=== PATIENT | female | born 1990 | race Caucasian/White ===

== ENCOUNTER 2016-12-22 14:37 | Emergency (ER) | payer SELFPAY ==
[~2016-12-22] VITALS: Ht 165.1 cm; Wt 49.9 kg
[~2016-12-22 14:37] MED LIST: ALBU1AER9 INH; FLUT44AE INH; ONDA4TAB46 PO; OXYC1TAB3 PO
[2016-12-22 14:50] VITALS: TEMP 36.8; Ht 165.1 cm; Wt 49.9 kg
[2016-12-22] MEDS ORDERED: OXYC1TAB3 PO (17:15)
[2016-12-22] MEDS ORDERED: PRED50TA PO (17:15)
--- NOTE | 2016-12-22 17:15 | EMERGENCY ROOM VISIT NOTE ---
History First contact with patient: 16:28 Chief Complaint: ILLNESS Stated Complaint: RAYNAUDS History of Present Illness The patient is a 26 year old female who presents to the Emergency Room with complaints of bilateral foot pain. The patient reports that she has a history of Raynaud's disease for the past 8 years. The patient reports that she sees a restaurant host/hostess locally and a vascular surgeon in [place] for her symptoms. She reports that she previously saw pain management, but is no longer able to see them due to insurance issues. She currently takes a calcium channel merna and naproxen for her symptoms. She states that over the past few weeks , she has had increasing episodes of pain in the feet. She states that she has become nauseous at times due to the pain. She reports she becomes symptomatic with any temperature changes. She rates the pain an 8/10 at its worst. She did soak her feet in Epsom salts today with some relief. She reports that she called her restaurant host/hostess and was able to make an appointment next week. She also call her primary care provider, but they're unable to see her for several weeks. She denies any new symptoms. She denies any numbness or weakness. She denies any fevers/chills. Review of Systems A complete 10-point Review of Systems was discussed with the patient, with pertinent positives and negatives listed in the History of Present Illness. All remaining Review of Systems questions can be considered negative unless otherwise specified. Past Medical/Surgical History Medical Problems: (1) Abrasion of hand (2) Abrasion of hand (3) Anxiety (4) Asthma, Unspecified (5) Depression (6) Esophageal Reflux (7) Pain in finger of left hand (8) Pain, dental (9) Pilonidal Cyst W Abscess (10) Pre-syncope (11) Raynauds disease (12) Sprain of left shoulder Family History No significant family history Social History Smoking Status: Never Smoker Alcohol Use: none Drug Use: none Marital Status: single Housing Status: lives with family Occupation Status: employed Current/Historical Medications Scheduled Ibuprofen (Advil), 200-600 MG PO Q4H Levonorgestrel & Eth Estradiol (Orsythia), PO DAILY Multiple Vitamin (Multivitamin), 1 TAB PO DAILY Nifedipine (Procardia), 30 MG PO BID Paroxetine (Paxil), 40 MG PO HS Prednisone (Prednisone), 50 MG PO DAILY Scheduled PRN Albuterol Sulf (Proventil 0.083% 2.5MG/3ML), 2.5 MG INH Q4H PRN for Wheezing Albuterol Sulfate (Proair Hfa), 2 PUFFS INH QID PRN for Asthma Symptoms Fluticasone Propionate Hfa (Flovent Hfa 44MCG Inhaler), 2 PUFFS INH BID PRN for Asthma Symptoms Naproxen (Naprosyn), 500 MG PO BID PRN for PRN Omeprazole (Omeprazole), 20 MG PO DAILY PRN for Acid Reflux Oxycodone Ir (Roxicodone Ir), 1-2 TAB PO Q4H PRN for Pain Ranitidine Hcl (Zantac), 300 MG PO HS PRN for Indigestion Valacyclovir Hcl (Valtrex), 2,000 MG PO Q12 PRN for Cold Sore(s) Allergies Coded Allergies: Hydrocodone (Unverified Allergy, Mild, HIVES, 12/22/16) Codeine (Verified Allergy, Unknown, rash, 12/22/16) Molds and Smuts (Verified Allergy, Unknown, 12/22/16) Penicillins (Verified Allergy, Unknown, 12/22/16) Tramadol (Verified Allergy, Unknown, RASH, 12/22/16) Physical Exam Vital Signs Date Time Temp Pulse Resp B/P Pulse Ox O2 Delivery O2 Flow Rate FiO2 12/22/16 17:32 95 18 125/77 98 12/22/16 14:50 36.8 91 18 113/77 93 Room Air Physical Exam VITALS: Vitals are noted on the nurse's note and reviewed by myself. Vital signs stable. GENERAL: This is a 25-year-old female, in no acute distress, nondiaphoretic, well-developed well-nourished. SKIN: Capillary reflex less than 2 seconds. HEART: Regular rate and rhythm without murmurs gallops or rubs. LUNGS: Clear to auscultation bilaterally without wheezes, rales or rhonchi. No retractions or accessory muscle use. EXTREMITIES: Mild pallor to the left first second and third toes. No erythema or cyanosis. Capillary refill within 2 seconds. No tenderness to palpation. Distal sensation intact. MUSCULOSKELETAL: Full range of motion and strength 5/5 in bilateral lower extremities. NEURO: Patient was alert and oriented to person place and time. Normal sensation to light and sharp touch. Medical Decision & Procedures Medical Decision Differential diagnosis includes Raynaud disease, DVT, gangrene, infection, among others. The patient was evaluated as above. Her physical exam is remarkable at this time, but the patient states she has had intermittent worsening symptoms over the past few weeks. I did attempt to contact the patient's restaurant host/hostess, but was not able to get through to anyone. I did agree to give the patient a short course of pain medication as well as a course of prednisone. She will follow- up closely with her restaurant host/hostess and she does state that she has appointment next week with them. She understands to return for any worsening symptoms. She verbalized understanding and was discharged home in good condition. [place] Drug Monitoring Program Search Results: patient reviewed within database, no issues identified Impression Primary Impression: Raynaud disease Departure Information Dispostion Home / Self-Care Condition GOOD Prescriptions Prednisone (Prednisone) 50 Mg Tab 50 MG PO DAILY for 5 Days, #5 TAB Prov: Brooklynn Reyes PA-C 12/22/16 Oxycodone Ir (Roxicodone Ir) 5 Mg Tab 1-2 TAB PO Q4H Y for Pain, #15 TAB For Initial Treatment Prov: Brooklynn Reyes PA-C 12/22/16 Referrals Shanel Turner (PCP) Patient Instructions My [facility] Additional Instructions For pain control, you can use the following [id number] medicines (if >12 yo): - Regular strength (325mg/tab) Tylenol (acetaminophen) 2 tabs every 4-6 hours as needed. Do not exceed 12 tablets in a 24 hour period. Avoid taking more than 4 grams (4000 mg) of Tylenol per day. This includes any other sources of acetaminophen you may take on a regular basis. - Regular strength (200 mg/tab) Advil (ibuprofen) 1-2 tabs every 4-6 hours as needed. Do not exceed a dose of 3200 mg per day. You have been prescribed Prednisone. This is a steroid which will help decrease your inflammation and pain. Take this medicine as prescribed. Take the ENTIRE course. It is best to take steroids early in the morning as PM dosing can affect your sleeping patterns. You have been prescribed Oxy IR to be used for pain control. Take 1-2 tablets every 4-6 hours as needed for pain. This is a narcotic medication. You cannot drive or consume alcohol while on this medicine. This medicine should only be used for pain that cannot be controlled with [id number] pain medicines. Follow-up with your restaurant host/hostess and primary care provider as scheduled. Problem Qualifiers Primary Impression: Raynaud disease Raynaud?s-associated gangrene presence: without gangrene Qualified Codes: I73.00 - Raynaud's syndrome without gangrene
[2016-12-22 17:32] VITALS: BP 125/77; PULSE 95; O2SAT 98
[2017-06-15] MEDS ORDERED: VALA1TAB2 PO (10:28)
[2017-06-15] MEDS ORDERED: ALBINS/ NEB (10:28)
[2017-06-15] MEDS ORDERED: LEVO1TAB19 PO (10:32)
[2017-06-15] MEDS ORDERED: MULTTAB58 PO (13:23)
[2017-06-15] MEDS ORDERED: OMEP20TA PO (13:50)
[2017-06-15] MEDS ORDERED: RANI300T PO (13:50)
== END 2016-12-22 17:25 | disposition home or self-care (01) ==
LOC: C.EDB 14:39
DX: I73.00 Raynaud's syndrome without gangrene (principal); M79.671 Pain in right foot; M79.672 Pain in left foot; R11.0 Nausea; F41.9 Anxiety disorder, unspecified; F32.9 Major depressive disorder, single episode, unspecified; K21.9 Gastro-esophageal reflux disease without esophagitis; J45.909 Unspecified asthma, uncomplicated; Z79.3 Long term (current) use of hormonal contraceptives; Z79.899 Other long term (current) drug therapy; Z88.0 Allergy status to penicillin; Z88.5 Allergy status to narcotic agent; Z88.6 Allergy status to analgesic agent

== ENCOUNTER 2017-06-15 15:18 | Emergency (ER) | payer SELFPAY ==
[~2017-06-15] VITALS: Ht 165.1 cm; Wt 46.4 kg
[~2017-06-15 15:18] MED LIST changes: +ALBINS/ NEB; +LEVO1TAB19 PO; +MULTTAB58 PO; +OMEP20TA PO; -ONDA4TAB46 PO; +RANI300T PO; +VALA1TAB2 PO
[2017-06-15 15:23] VITALS: TEMP 36.6; Ht 165.1 cm; Wt 46.4 kg
[2017-06-15] MEDS ORDERED: SODIUM CHLORIDE 0.9% 1000ML 1,000 ML IV STA (16:02)
[2017-06-15] MEDS ORDERED: HYDROmorphone INJ 1 MG/ML SYR IV STA (16:02)
[2017-06-15] MEDS ORDERED: ALBU18002 INH (17:05)
[2017-06-15] MEDS ORDERED: FLVHFA44 INH (17:05)
[2017-06-15] MEDS ORDERED: PRED50TA PO (17:11)
[2017-06-15] MEDS ORDERED: OXYC1TAB3 PO (17:11)
[2017-06-15] MEDS ORDERED: IBUP-1277 PO (17:12)
--- NOTE | 2017-06-15 17:12 | EMERGENCY ROOM VISIT NOTE ---
History Report prepared by Jon: Damien Cho Under the Supervision of: Dr. Jacques Ellsworth M.D. First contact with patient: 15:56 Chief Complaint: FOOT PAIN Stated Complaint: ELZA. FOOT PAIN/RAYNARDS DISEASE History of Present Illness The patient is a 27 year old female who presents to the Emergency Room with complaints of persistent bilateral foot pain beginning a few days ago. She states that her right foot is worse than her left. She has a history of Raynaud' s disease. The patient states that her feet are turning bluish as well. She denies any urinary symptoms, fevers, SOB, chills, or vomiting. She states that she has felt stressed lately, but has been eating normally. She denies swimming in any cold bodies of water recently. Source of History: patient Onset: A few days ago Position: foot (bilateral) Timing: other (persistent) Associated Symptoms: No fevers, No chills, No SOB, No vomiting, No urinary symptoms Note: The patient also complains of bluish coloration to the feet. Review of Systems See HPI for pertinent positives & negatives. A total of 10 systems reviewed and were otherwise negative. Past Medical & Surgical Medical Problems: (1) Abrasion of hand (2) Abrasion of hand (3) Anxiety (4) Asthma, Unspecified (5) Depression (6) Esophageal Reflux (7) Pain in finger of left hand (8) Pain, dental (9) Pilonidal Cyst W Abscess (10) Pre-syncope (11) Raynauds disease (12) Sprain of left shoulder Family History No significant family history Social History Smoking Status: Never Smoker Alcohol Use: none Drug Use: none Marital Status: single Housing Status: lives with family Occupation Status: employed Current/Historical Medications Scheduled Levonorgestrel & Eth Estradiol (Orsythia), 1 TAB PO DAILY Multiple Vitamin (Multivitamin), 1 TAB PO DAILY Nifedipine (Procardia), 30 MG PO UD Paroxetine (Paxil), 40 MG PO HS Prednisone (Prednisone), 50 MG PO DAILY Scheduled PRN Albuterol Sulf (Proventil 0.083% 2.5MG/3ML), 2.5 MG NEB Q4H PRN for Wheezing Albuterol Sulfate (Proair Respiclick), 2 PUFFS INH QID PRN for Asthma Symptoms Fluticasone Propionate (Flovent Hfa), 2 PUFFS INH BID PRN for Asthma Symptoms Ibuprofen (Advil), 200-600 MG PO Q4H PRN for Pain Naproxen (Naprosyn), 500 MG PO BID PRN for Pain Omeprazole (Omeprazole), 20 MG PO DAILY PRN for Acid Reflux Oxycodone Immediate Rel Tab (Roxicodone Ir), 1-2 TAB PO Q4H PRN for Severe Pain Ranitidine Hcl (Zantac), 300 MG PO HS PRN for Indigestion Valacyclovir Hcl (Valtrex), 2,000 MG PO Q12 PRN for Cold Sore(s) Allergies Coded Allergies: Hydrocodone (Unverified Allergy, Mild, HIVES, 12/22/16) Codeine (Verified Allergy, Unknown, rash, 12/22/16) Molds and Smuts (Verified Allergy, Unknown, 12/22/16) Penicillins (Verified Allergy, Unknown, 12/22/16) Tramadol (Verified Allergy, Unknown, RASH, 12/22/16) Physical Exam Vital Signs Date Time Temp Pulse Resp B/P (MAP) Pulse Ox O2 Delivery O2 Flow Rate FiO2 06/15/17 17:35 71 16 117/63 100 06/15/17 15:23 36.6 104 17 115/72 94 Room Air Physical Exam GENERAL: Patient is in moderate distress, uncomfortable appearing. HEENT: No acute trauma, normocephalic atraumatic, mucous membranes moist, no nasal congestion, no scleral icterus. NECK: No stridor, no adenopathy, no meningismus, trachea is midline. LUNGS: No dyspnea. Clear to auscultation and equal bilaterally. No wheeze, no rhonchi. HEART: Mildly tachycardic rate with a normal rhythm. No murmurs, rubs, gallops appreciated. ABDOMEN: Soft, nontender, bowel sounds positive, no masses appreciated, no peritonitis. BACK: No midline tenderness, no CVA tenderness EXTREMITIES: Normal motion all extremities, no edema. Slight bluish discoloration of the right fourth and fifth toes. NEUROLOGIC: Alert and oriented, no acute motor or sensory deficits, no focal weakness, cranial nerves grossly intact. SKIN: No rash, no jaundice, no diaphoresis. Medical Decision & Procedures Medications Administered Medications (Trade) Dose Ordered Sig/Ra Route Start Time Stop Time Status Last Admin Dose Admin Sodium Chloride 1,000 ml @ 999 mls/hr Q1H1M STAT IV 06/15/17 16:02 06/15/17 17:02 DC 06/15/17 16:15 999 MLS/HR Hydromorphone HCl (Dilaudid Inj) 1 mg NOW STAT IV 06/15/17 16:02 06/15/17 16:03 DC 06/15/17 16:16 1 MG Oxycodone HCl (Roxicodone Immediate Rel 5MG Home Pack) 1 homepack UD ONCE PO 06/15/17 17:15 06/15/17 17:16 DC 06/15/17 17:33 1 HOMEPACK Dexamethasone Sodium Phosphate (Decadron Inj) 10 mg NOW ONCE IV 06/15/17 17:15 06/15/17 17:16 DC 06/15/17 17:25 10 MG ED Course 1558: The patient was evaluated in room A2. A complete history and physical exam was performed. 1602: Ordered Dilaudid Inj 1 mg IV, Sodium Chloride 1000 ml @ 999 mls/hr. 1626: I reassessed the patient. She is feeling better, receiving warm IV fluids. 1705: Reevaluated the patient. She feels much better, and her toes appear warm and pink. Discussed results and discharge instructions: she verbalized understanding and agreement. The patient is ready for discharge. 1715: Ordered Decadron Inj 10 mg IV, Roxicodone Immediate Rel 5 mg Home Pack PO. Medical Decision Differential: Raynaud's, arterial occlusion, gangrene, infection, as well as other etiologies were considered. Pleasant 27 yr old female with flare of raynaud resulting in blue and pain in toes/feet. No ulcers and color improving already. Warmth to feet, warm fluids and pain meds. Feeling much better. Toes warm, pink with good sensation. No other symptoms. Consistent with flare, unclear why in middle of summer though maybe with AC cause. She will follow up with PCP. Continue nifedipine. Follow up with PCP. Previously notes that steroids make symptoms much better thus will do these. [place] Drug Monitoring Program Search Results: patient reviewed within database, see additional documentation Drug Monitoring Findings: Single narcotic prescription in the last six months. Impression Primary Impression: Raynaud disease Scribe Attestation The scribe's documentation has been prepared under my direction and personally reviewed by me in its entirety. I confirm that the note above accurately reflects all work, treatment, procedures, and medical decision making performed by me. Departure Information Dispostion Home / Self-Care Prescriptions Prednisone (PREDNISONE) 50 Mg Tab 50 MG PO DAILY for 5 Days, #5 TAB Prov: Jacques Ellsworth M.D. 06/15/17 Oxycodone Immediate Rel Tab (ROXICODONE IR) 5 Mg Tab 1-2 TAB PO Q4H Y for Severe Pain, #20 TAB Prov: Jacques Ellsworth M.D. 06/15/17 Referrals Sheng Tang M.D. Patient Instructions My [facility], Raynaud Disease Additional Instructions You have received a narcotic pain medication prescription. These medications may cause drowsiness and should not be used with other sedative medications. Do not drive, drink alcohol, perform dangerous activities, nor make important decisions after taking these medications. correction use or inappropriate use may lead to addiction.
[2017-06-15] MEDS ORDERED: NAPR-1169 PO (17:13)
[2017-06-15] MEDS ORDERED: OXYCODONE IR HOME PACK PO ONE (17:15)
[2017-06-15] MEDS ORDERED: DEXAMETHASONE SOD INJ 10 MG/ML VIAL IV ONE (17:15)
[2017-06-15 17:35] VITALS: BP 117/63; PULSE 71; O2SAT 100
[2017-06-15] MEDS ORDERED: NIFE10CA20 PO (21:56)
[2017-06-15] MEDS ORDERED: PARO1TAB29 PO (22:34)
== END 2017-06-15 17:37 | disposition home or self-care (01) ==
LOC: C.EDB 15:22 → C.EDA 17:37
DX: I73.00 Raynaud's syndrome without gangrene (principal); F41.9 Anxiety disorder, unspecified; J45.909 Unspecified asthma, uncomplicated; F32.9 Major depressive disorder, single episode, unspecified; K21.9 Gastro-esophageal reflux disease without esophagitis

== ENCOUNTER 2021-12-23 17:37 | Inpatient (IN) ==
[2021-12-23] MEDS ORDERED: SODIUM CHLORIDE 0.9% 1000ML 1,000 ML IV SCH (18:15)
[2021-12-23] MEDS ORDERED: ONDANSETRON INJ 2 MG/ML 2 ML VIAL IV STA (18:24)
[2021-12-23] MEDS ORDERED: SODIUM CHLORIDE 0.9% 1000ML 1,000 ML IV ONE (18:24)
[2021-12-23 18:33] LABS: Hematocrit (blood only) 38.7 % (37-47); Hemoglobin 12.7 g/dL (12.0-16.0); Mean Corpuscular Hemoglobin 29.2 pg (25-34); Mean Corpuscular Hgb Conc 32.8 g/dL (32-36); Mean Platelet Volume 10.4 fL (7.4-10.4); Platelet Count 292 K/uL (130-400); RDW Coefficient of Variation 12.7 % (11.5-14.5); RDW Standard Deviation 40.8 fL (36.4-46.3); Red Blood Count 4.35 M/uL (4.2-5.4); White Blood Count 24.04 K/uL (4.8-10.8)
--- NOTE | 2021-12-23 18:40 | Emergency Department Note ---
Impression & Plan Hypotension, UTI (urinary tract infection), Kidney stone, Tachycardia, Leukocytosis, Pyelonephritis ED Provider Note NAME: KASSANDRA MIGUEL AGE: 31 SEX: F : 1990 ARRIVES VIA: Walk-In INFORMANT: [Patient] ED PROVIDER(S): [Nehemiah Coombs MD] CHIEF COMPLAINT: Syncope HISTORY OF PRESENT ILLNESS: The patient is a 31-year-old female who states that for 2-3 days, she has had flulike symptoms. She has felt chills, sweats, nausea. She has been fatigued. The patient has had no appetite and feels dehydrated. No diarrhea. No real cough. Maybe some mild shortness of breath. Patient was on her way to get a Covid test today when she felt quite faint. She apparently passed out at least 2 times, every time she tried to stand, she would pass out. The patient thinks that she is dehydrated from not eating or drinking. The patient is not vaccinated for COVID-19 or influenza. REVIEW OF SYSTEMS: See HPI for pertinent positives and negatives. A total of ten systems were reviewed and were otherwise negative. PMHx/PSHx: See Below SOCIAL HISTORY: See Below. PHYSICAL EXAM: GENERAL: Patient is in no acute distress. HEENT: No acute trauma, normocephalic atraumatic, mucous membranes moist, no nasal congestion, no scleral icterus. NECK: No stridor, no adenopathy, no meningismus, trachea is midline. LUNGS: Clear to auscultation bilaterally, no wheeze, no rhonchi, breath sounds equal. HEART: Mildly tachycardic, regular rhythm, no murmurs. ABDOMEN: Soft, nontender, bowel sounds positive, no hernias, no peritonitis. EXTREMITIES: No cyanosis or edema, full range of motion of all the joints without pain or difficulty, no signs for acute trauma. NEUROLOGIC: Oriented x 3, no acute motor or sensory deficits, no focal weakness. SKIN: No rash, no jaundice, no diaphoresis. DIFFERENTIAL DIAGNOSIS: Infection, dehydration, COVID-19, UTI, , dysrhythmia, SVT, a flutter, A. fib, metabolic abnormality, hypo/hyperglycemia, electrolyte disturbance, anemia, hypoxia, cardiac sources, intracerebral event, toxicologic issues, stroke, TIA, as well as other pathologies. EMERGENCY DEPARTMENT COURSE/PROCEDURES: ECG: Indication was syncope. The ECG shows a normal sinus rhythm with a rate of 96. There is an incomplete right bundle branch block. There is no ST elevation, no dysrhythmia, no PVCs. The QTc is 464. Continuous Cardiac Monitoring: An order was placed for continuous cardiac monitoring. The monitor shows a rate of 102 with sinus tachycardia. Critical Care Note: I have personally spent 53 minutes of critical care time in the direct management of this patient. This includes bedside care, interpretation of diagnostic studies, and testing, discussion with consultants, patient, and family members, and other required patient management activities. This 53 minutes is in excess of all separately billable procedures. MEDICAL DECISION MAKING: There is a significant leukocytosis at 24,000, this would be consistent with infection. Renal panel testing showed a slightly low potassium, no renal failure. Lactic acid level was elevated consistent with potential infection versus dehydration. Magnesium was low at 1.4. No concerning liver enzyme elevation. The patient appeared to be in a euthyroid state. testing returned negative. ECG showed a normal sinus rhythm, no obvious acute ischemia. Cardiac enzyme testing x1 was not consistent with acute cardiac injury. Urinalysis is consistent with infection. Covid and influenza testing returned negative. Chest film did not show pneumonia or CHF. Abdominal and pelvis CT showed potential pyelonephritis. Renal stones were seen. The patient received IV saline, 2 L. She was given a liter of lactated Ringer's. She received IV ceftriaxone as antibiotic coverage. She received IV potassium, IV Zofran, IV magnesium. The patient's heart rate has improved, her blood pressure has improved. I discussed her case with urology. Urology did see the patient here in the ED. I spoke to the patient about her findings. Hospitalization is warranted. She may have early sepsis as the cause for her presentation. I spoke to case management, the on-call hospitalist was consulted. Past Med/Surg History Medical History (Updated 12/24/21 @ 16:39 by Nehemiah Coombs MD) Raynaud disease UTI (urinary tract infection) Surgical History No significant past surgical history Social History Smoking Status: Never smoker Hx Alcohol Use: No Hx Substance Use: Yes Last Used Substance: Days (ago) Preferred Language: Georgian Communication Ability: Effective [place] Required: No Beliefs That Will Affect Care: None marital status: Single Current Living Situation: Alone current occupational status: employed Feels Safe at Home: Yes Assistive Devices: None Allergies Allergies Allergy/AdvReac Type Severity Reaction Status Date / Time hydrocodone Allergy Intermediate HIVES Verified 12/23/21 19:17 codeine Allergy Mild rash Verified 12/23/21 19:17 tramadol Allergy Mild RASH Verified 12/23/21 19:17 mold Allergy Unknown Unknown Verified 12/23/21 19:17 Penicillins Allergy Unknown Unknown Verified 12/23/21 19:17 Home Meds Home Medications Medication Instructions Recorded Confirmed [id number] 200 mcg-vit K 100 1 cap PO DAILY 04/30/20 12/23/21 mcg-lycop 500 [id number] capsule (Daily Multivitamin) atfdmok-kpmhncaiqjcxx-czhsmyrc 250 2 tab PO BID PRN 12/23/21 12/23/21 mg-250 mg-65 mg tablet (Excedrin Migraine) ibuprofen 200 mg tablet (Advil) 400 mg PO Q12 PRN 12/23/21 12/23/21 Results & Data (ED) Vital Signs Vital Signs - 24 hr 12/23/21 17:46 12/23/21 18:02 12/23/21 18:03 Temperature 36.3 C L Temperature Source Temporal Artery Scan Pulse Rate 116 H Pulse Rate [Right Finger] 102 H Pulse Rate from SpO2 Sensor Respiratory Rate 20 16 Respiratory Effort / Characteristics Non-Labored Respiratory Depth Normal Blood Pressure 72/42 L Blood Pressure [Left Arm] 82/44 L Blood Pressure Mean 52 Blood Pressure Mean [Left Arm] 56 Blood Pressure Position [Left Arm] Lying Pulse Oximetry 100 97 100 Oxygen Delivery Method Room Air Room Air Room Air Sepsis Recent Fever Within 48 Hours No Sepsis New/Unexplained Change in Mental Status N/A Sepsis Action Taken by Nursing No Action Required 12/23/21 18:21 12/23/21 18:39 12/23/21 18:44 Temperature Temperature Source Pulse Rate 101 H 106 H Pulse Rate [Right Finger] Pulse Rate from SpO2 Sensor Respiratory Rate 20 16 Respiratory Effort / Characteristics Respiratory Depth Blood Pressure 92/57 L 88/49 L 96/58 L Blood Pressure [Left Arm] Blood Pressure Mean 68 62 70 Blood Pressure Mean [Left Arm] Blood Pressure Position [Left Arm] Pulse Oximetry 100 Oxygen Delivery Method Room Air Sepsis Recent Fever Within 48 Hours Sepsis New/Unexplained Change in Mental Status Sepsis Action Taken by Nursing 12/23/21 18:45 12/23/21 18:46 12/23/21 18:50 Temperature Temperature Source Pulse Rate 104 H 104 H Pulse Rate [Right Finger] Pulse Rate from SpO2 Sensor 109 H 105 H Respiratory Rate 19 17 Respiratory Effort / Characteristics Respiratory Depth Blood Pressure 92/52 L 93/60 L Blood Pressure [Left Arm] Blood Pressure Mean 65 71 Blood Pressure Mean [Left Arm] Blood Pressure Position [Left Arm] Pulse Oximetry 97 100 Oxygen Delivery Method Sepsis Recent Fever Within 48 Hours Sepsis New/Unexplained Change in Mental Status Sepsis Action Taken by Nursing 12/23/21 18:55 12/23/21 19:00 12/23/21 19:05 Temperature Temperature Source Pulse Rate 99 H 97 H Pulse Rate [Right Finger] Pulse Rate from SpO2 Sensor Respiratory Rate 16 15 Respiratory Effort / Characteristics Respiratory Depth Blood Pressure 100/61 98/60 L Blood Pressure [Left Arm] Blood Pressure Mean 74 72 Blood Pressure Mean [Left Arm] Blood Pressure Position [Left Arm] Pulse Oximetry 98 Oxygen Delivery Method Room Air Sepsis Recent Fever Within 48 Hours Sepsis New/Unexplained Change in Mental Status Sepsis Action Taken by Nursing 12/23/21 19:10 12/23/21 19:20 12/23/21 19:25 Temperature Temperature Source Pulse Rate Pulse Rate [Right Finger] Pulse Rate from SpO2 Sensor Respiratory Rate Respiratory Effort / Characteristics Respiratory Depth Blood Pressure 91/59 L 96/60 L 91/59 L Blood Pressure [Left Arm] Blood Pressure Mean 69 72 69 Blood Pressure Mean [Left Arm] Blood Pressure Position [Left Arm] Pulse Oximetry Oxygen Delivery Method Sepsis Recent Fever Within 48 Hours Sepsis New/Unexplained Change in Mental Status Sepsis Action Taken by Nursing 12/23/21 19:30 12/23/21 19:37 12/23/21 19:40 Temperature Temperature Source Pulse Rate Pulse Rate [Right Finger] Pulse Rate from SpO2 Sensor Respiratory Rate Respiratory Effort / Characteristics Respiratory Depth Blood Pressure 91/65 L 94/64 L 103/63 Blood Pressure [Left Arm] Blood Pressure Mean 73 74 76 Blood Pressure Mean [Left Arm] Blood Pressure Position [Left Arm] Pulse Oximetry Oxygen Delivery Method Sepsis Recent Fever Within 48 Hours Sepsis New/Unexplained Change in Mental Status Sepsis Action Taken by Nursing 12/23/21 19:55 12/23/21 20:00 12/23/21 20:15 Temperature Temperature Source Pulse Rate Pulse Rate [Right Finger] Pulse Rate from SpO2 Sensor Respiratory Rate Respiratory Effort / Characteristics Respiratory Depth Blood Pressure 97/62 L 94/65 L 106/70 Blood Pressure [Left Arm] Blood Pressure Mean 73 74 82 Blood Pressure Mean [Left Arm] Blood Pressure Position [Left Arm] Pulse Oximetry Oxygen Delivery Method Sepsis Recent Fever Within 48 Hours Sepsis New/Unexplained Change in Mental Status Sepsis Action Taken by Nursing 12/23/21 20:33 12/23/21 20:45 12/23/21 21:00 Temperature Temperature Source Pulse Rate 110 H 120 H Pulse Rate [Right Finger] Pulse Rate from SpO2 Sensor Respiratory Rate 16 19 Respiratory Effort / Characteristics Respiratory Depth Blood Pressure 101/75 96/63 L 107/72 Blood Pressure [Left Arm] Blood Pressure Mean 83 74 83 Blood Pressure Mean [Left Arm] Blood Pressure Position [Left Arm] Pulse Oximetry Oxygen Delivery Method Sepsis Recent Fever Within 48 Hours Sepsis New/Unexplained Change in Mental Status Sepsis Action Taken by [place] Medications Current Medication List: was personally reviewed by me Laboratory Data Attestation: I reviewed the patient's lab results. Result diagrams: 12/24/21 05:20 12/24/21 05:20 Lab Results 12/23/21 12/23/21 12/23/21 Range/Units 17:53 17:53 17:53 WBC 24.04 H (4.8-10.8) K/uL RBC 4.35 (4.2-5.4) M/uL Hgb 12.7 (12.0-16.0) g/dL Hct 38.7 (37-47) % MCV 89.0 (80-100) fL MCH 29.2 (25-34) pg MCHC 32.8 (32-36) g/dL RDW Std Deviation 40.8 (36.4-46.3) fL RDW Coeff of [place] 12.7 (11.5-14.5) % Plt Count 292 (130-400) K/uL MPV 10.4 (7.4-10.4) fL Immature Gran % (Auto) 0.4 % Neut % (Auto) 81.0 % Lymph % (Auto) 7.3 % [place] % (Auto) 11.2 % Eos % (Auto) 0.0 % Baso % (Auto) 0.1 % Neut # (Auto) 19.46 H (1.4-6.5) K/uL Lymph # (Auto) 1.76 (1.2-3.4) K/uL [place] # (Auto) 2.69 H (0.11-0.59) K/uL Eos # (Auto) 0.01 (0-0.5) K/uL Baso # (Auto) 0.02 (0-0.2) K/uL Immature Gran # (Auto) 0.10 H (0.00-0.02) K/uL APTT 27.3 (21.0-31.0) Seconds PTT Ratio 1.0 Sodium 134 L (136-145) mmol/L Potassium 3.1 L (3.5-5.1) mmol/L Chloride 99 (98-107) mmol/L Carbon Dioxide 23 (21-32) mmol/L Anion Gap 12 H (3-11) BUN 10 (6-23) mg/dl Creatinine 1.06 (0.6-1.2) mg/dl Est Cr Clr Drug Dosing 67.9 ml/min Est GFR ( Amer) 79.9 ml/min Est GFR (Non-Af Amer) 68.9 ml/min BUN/Creatinine Ratio 9.4 L (10-20) Glucose 135 H (70-99(Fasting)) mg/dl POC Glucose (70-99) mg/dl Lactate (0.4-2.0) mmol/L Calcium 8.7 (8.5-10.1) mg/dl Magnesium 1.4 L (1.7-2.4) mg/dl Total Bilirubin 0.8 (0.2-1.0) mg/dl AST 36 (13-39) U/L ALT 50 (7-52) U/L Alkaline Phosphatase 128 H (34-104) U/L Troponin I < 0.03 (0-0.04) ng/ml Total Protein 7.0 (6.0-8.3) gm/dl Albumin 3.7 (3.4-5.0) gm/dl Globulin 3.3 (2.5-4.0) gm/dl Albumin/Globulin Ratio 1.1 (0.9-2) TSH (0.300-4.500) uIu/ml HCG, Qual (Negative) Urine Color Urine Appearance (Clear) Urine pH (4.5-7.5) Ur Specific [place] (1.000-1.030) Urine Protein (Negative) Urine Glucose (UA) (Negative) Urine Ketones (Negative) Urine Blood (Negative) Urine Nitrite (Negative) Urine Bilirubin (Negative) Urine Urobilinogen (Negative) Ur Leukocyte Esterase (Negative) Urine WBC (Auto) (0-5) /hpf Urine RBC (Auto) (0-4) /hpf U Hyaline Cast (Auto) (0-5) /lpf U Epithel Cells (Auto) (0-5) /lpf Urine Bacteria (Auto) (Negative) Influ A Molecular Assay (Negative) Influ B Molecular Assay (Negative) SARS-CoV-2, RNA, NAAT (NEGATIVE) 12/23/21 12/23/21 12/23/21 Range/Units 17:53 17:53 18:01 WBC (4.8-10.8) K/uL RBC (4.2-5.4) M/uL Hgb (12.0-16.0) g/dL Hct (37-47) % MCV (80-100) fL MCH (25-34) pg MCHC (32-36) g/dL RDW Std Deviation (36.4-46.3) fL RDW Coeff of [place] (11.5-14.5) % Plt Count (130-400) K/uL MPV (7.4-10.4) fL Immature Gran % (Auto) % Neut % (Auto) % Lymph % (Auto) % [place] % (Auto) % Eos % (Auto) % Baso % (Auto) % Neut # (Auto) (1.4-6.5) K/uL Lymph # (Auto) (1.2-3.4) K/uL [place] # (Auto) (0.11-0.59) K/uL Eos # (Auto) (0-0.5) K/uL Baso # (Auto) (0-0.2) K/uL Immature Gran # (Auto) (0.00-0.02) K/uL APTT (21.0-31.0) Seconds PTT Ratio Sodium (136-145) mmol/L Potassium (3.5-5.1) mmol/L Chloride (98-107) mmol/L Carbon Dioxide (21-32) mmol/L Anion Gap (3-11) BUN (6-23) mg/dl Creatinine (0.6-1.2) mg/dl Est Cr Clr Drug Dosing ml/min Est GFR ( Amer) ml/min Est GFR (Non-Af Amer) ml/min BUN/Creatinine Ratio (10-20) Glucose (70-99(Fasting)) mg/dl POC Glucose 120 H (70-99) mg/dl Lactate (0.4-2.0) mmol/L Calcium (8.5-10.1) mg/dl Magnesium (1.7-2.4) mg/dl Total Bilirubin (0.2-1.0) mg/dl AST (13-39) U/L ALT (7-52) U/L Alkaline Phosphatase (34-104) U/L Troponin I (0-0.04) ng/ml Total Protein (6.0-8.3) gm/dl Albumin (3.4-5.0) gm/dl Globulin (2.5-4.0) gm/dl Albumin/Globulin Ratio (0.9-2) TSH 2.347 (0.300-4.500) uIu/ml HCG, Qual Negative (Negative) Urine Color Urine Appearance (Clear) Urine pH (4.5-7.5) Ur Specific [place] (1.000-1.030) Urine Protein (Negative) Urine Glucose (UA) (Negative) Urine Ketones (Negative) Urine Blood (Negative) Urine Nitrite (Negative) Urine Bilirubin (Negative) Urine Urobilinogen (Negative) Ur Leukocyte Esterase (Negative) Urine WBC (Auto) (0-5) /hpf Urine RBC (Auto) (0-4) /hpf U Hyaline Cast (Auto) (0-5) /lpf U Epithel Cells (Auto) (0-5) /lpf Urine Bacteria (Auto) (Negative) Influ A Molecular Assay (Negative) Influ B Molecular Assay (Negative) SARS-CoV-2, RNA, NAAT (NEGATIVE) 12/23/21 12/23/21 12/23/21 Range/Units 18:45 18:45 19:35 WBC (4.8-10.8) K/uL RBC (4.2-5.4) M/uL Hgb (12.0-16.0) g/dL Hct (37-47) % MCV (80-100) fL MCH (25-34) pg MCHC (32-36) g/dL RDW Std Deviation (36.4-46.3) fL RDW Coeff of [place] (11.5-14.5) % Plt Count (130-400) K/uL MPV (7.4-10.4) fL Immature Gran % (Auto) % Neut % (Auto) % Lymph % (Auto) % [place] % (Auto) % Eos % (Auto) % Baso % (Auto) % Neut # (Auto) (1.4-6.5) K/uL Lymph # (Auto) (1.2-3.4) K/uL [place] # (Auto) (0.11-0.59) K/uL Eos # (Auto) (0-0.5) K/uL Baso # (Auto) (0-0.2) K/uL Immature Gran # (Auto) (0.00-0.02) K/uL APTT (21.0-31.0) Seconds PTT Ratio Sodium (136-145) mmol/L Potassium (3.5-5.1) mmol/L Chloride (98-107) mmol/L Carbon Dioxide (21-32) mmol/L Anion Gap (3-11) BUN (6-23) mg/dl Creatinine (0.6-1.2) mg/dl Est Cr Clr Drug Dosing ml/min Est GFR ( Amer) ml/min Est GFR (Non-Af Amer) ml/min BUN/Creatinine Ratio (10-20) Glucose (70-99(Fasting)) mg/dl POC Glucose (70-99) mg/dl Lactate (0.4-2.0) mmol/L Calcium (8.5-10.1) mg/dl Magnesium (1.7-2.4) mg/dl Total Bilirubin (0.2-1.0) mg/dl AST (13-39) U/L ALT (7-52) U/L Alkaline Phosphatase (34-104) U/L Troponin I (0-0.04) ng/ml Total Protein (6.0-8.3) gm/dl Albumin (3.4-5.0) gm/dl Globulin (2.5-4.0) gm/dl Albumin/Globulin Ratio (0.9-2) TSH (0.300-4.500) uIu/ml HCG, Qual (Negative) Urine Color [place] Urine Appearance Cloudy A (Clear) Urine pH 6.0 (4.5-7.5) Ur Specific [place] 1.020 (1.000-1.030) Urine Protein 2+ H (Negative) Urine Glucose (UA) Negative (Negative) Urine Ketones Negative (Negative) Urine Blood 3+ H (Negative) Urine Nitrite Positive A (Negative) Urine Bilirubin 1+ H (Negative) Urine Urobilinogen Negative (Negative) Ur Leukocyte Esterase 2+ H (Negative) Urine WBC (Auto) >30 H (0-5) /hpf Urine RBC (Auto) >30 H (0-4) /hpf U Hyaline Cast (Auto) 5-10 H (0-5) /lpf U Epithel Cells (Auto) 10-20 H (0-5) /lpf Urine Bacteria (Auto) 4+ H (Negative) Influ A Molecular Assay Negative (Negative) Influ B Molecular Assay Negative (Negative) SARS-CoV-2, RNA, NAAT NEGATIVE (NEGATIVE) 12/23/21 Range/Units 20:33 WBC (4.8-10.8) K/uL RBC (4.2-5.4) M/uL Hgb (12.0-16.0) g/dL Hct (37-47) % MCV (80-100) fL MCH (25-34) pg MCHC (32-36) g/dL RDW Std Deviation (36.4-46.3) fL RDW Coeff of [place] (11.5-14.5) % Plt Count (130-400) K/uL MPV (7.4-10.4) fL Immature Gran % (Auto) % Neut % (Auto) % Lymph % (Auto) % [place] % (Auto) % Eos % (Auto) % Baso % (Auto) % Neut # (Auto) (1.4-6.5) K/uL Lymph # (Auto) (1.2-3.4) K/uL [place] # (Auto) (0.11-0.59) K/uL Eos # (Auto) (0-0.5) K/uL Baso # (Auto) (0-0.2) K/uL Immature Gran # (Auto) (0.00-0.02) K/uL APTT (21.0-31.0) Seconds PTT Ratio Sodium (136-145) mmol/L Potassium (3.5-5.1) mmol/L Chloride (98-107) mmol/L Carbon Dioxide (21-32) mmol/L Anion Gap (3-11) BUN (6-23) mg/dl Creatinine (0.6-1.2) mg/dl Est Cr Clr Drug Dosing ml/min Est GFR ( Amer) ml/min Est GFR (Non-Af Amer) ml/min BUN/Creatinine Ratio (10-20) Glucose (70-99(Fasting)) mg/dl POC Glucose (70-99) mg/dl Lactate 2.2 H* (0.4-2.0) mmol/L Calcium (8.5-10.1) mg/dl Magnesium (1.7-2.4) mg/dl Total Bilirubin (0.2-1.0) mg/dl AST (13-39) U/L ALT (7-52) U/L Alkaline Phosphatase (34-104) U/L Troponin I (0-0.04) ng/ml Total Protein (6.0-8.3) gm/dl Albumin (3.4-5.0) gm/dl Globulin (2.5-4.0) gm/dl Albumin/Globulin Ratio (0.9-2) TSH (0.300-4.500) uIu/ml HCG, Qual (Negative) Urine Color Urine Appearance (Clear) Urine pH (4.5-7.5) Ur Specific [place] (1.000-1.030) Urine Protein (Negative) Urine Glucose (UA) (Negative) Urine Ketones (Negative) Urine Blood (Negative) Urine Nitrite (Negative) Urine Bilirubin (Negative) Urine Urobilinogen (Negative) Ur Leukocyte Esterase (Negative) Urine WBC (Auto) (0-5) /hpf Urine RBC (Auto) (0-4) /hpf U Hyaline Cast (Auto) (0-5) /lpf U Epithel Cells (Auto) (0-5) /lpf Urine Bacteria (Auto) (Negative) Influ A Molecular Assay (Negative) Influ B Molecular Assay (Negative) SARS-CoV-2, RNA, NAAT (NEGATIVE) Administered Medications Enoxaparin Sodium (Enoxaparin Inj 40 Mg/0.4 Ml Syr) 40 mg SQ HS [facility] Stop: 01/23/22 00:00 Last Admin: 12/24/21 01:22 Dose: 40 mg Documented by: [id number] Sodium Chloride (Nss 1000ml) 1,000 mls @ 150 mls/hr IV .Q6H40M [facility] Stop: 01/23/22 00:59 Last Admin: 12/24/21 08:45 Dose: 150 mls/hr Documented by: [id number] Infusion: 12/24/21 08:15 Dose: 150 mls/hr Documented by: [id number] Admin: 12/24/21 01:34 Dose: 150 mls/hr Documented by: [id number] Cefepime HCl 2,000 mg/ Syringe 20 mls @ 5 mls/min IV Q12H [facility]; Protocol Stop: 01/03/22 00:00 Last Admin: 12/24/21 12:13 Dose: 5 mls/min Documented by: [id number] Admin: 12/24/21 01:23 Dose: 5 mls/min Documented by: [id number] Ibuprofen (Ibuprofen 200 Mg Tab) 400 mg PO Q12H PRN PRN Reason: Pain Stop: 01/23/22 11:05 Last Admin: 12/24/21 14:52 Dose: 400 mg Documented by: [id number] Tamsulosin HCl (Tamsulosin Hcl 0.4 Mg Cap) [facility] [place] Stop: 01/23/22 08:59 Last Admin: 12/24/21 12:13 Dose: 0.4 mg Documented by: [id number] Discontinued Medications Sodium Chloride (Nss 1000ml) 1,000 mls @ 999 mls/hr IV .Q1H1M ROHINI Stop: 12/23/21 19:15 Last Infusion: 12/23/21 19:11 Dose: 0 mls/hr Documented by: [id number] Admin: 12/23/21 18:42 Dose: 999 mls/hr Documented by: [id number] Sodium Chloride (Nss 1000ml) 1,000 mls @ 999 mls/hr IV .Q1H1M ONE Stop: 12/23/21 19:24 Last Infusion: 12/23/21 19:55 Dose: 0 mls/hr Documented by: [id number] Admin: 12/23/21 18:42 Dose: 999 mls/hr Documented by: [id number] Potassium Chloride (K Bg / Wtr) 10 meq in 100 mls @ 100 mls/hr IV ONE ONE; Protocol Stop: 12/23/21 20:29 Last Infusion: 12/23/21 21:37 Dose: 0 mls/hr Documented by: [id number] Admin: 12/23/21 20:42 Dose: 100 mls/hr Documented by: [id number] Magnesium Sulfate/Dextrose (Magnesium Sulfate / D5w) 1 gm in 100 mls @ 100 mls/hr IV Q1H ROHINI Stop: 12/23/21 21:30 Last Infusion: 12/23/21 21:38 Dose: 0 mls/hr Documented by: [id number] Admin: 12/23/21 21:06 Dose: 100 mls/hr Documented by: [id number] Infusion: 12/23/21 21:06 Dose: 0 mls/hr Documented by: [id number] Admin: 12/23/21 20:05 Dose: 100 mls/hr Documented by: [id number] Ceftriaxone Sodium (Rocephin) 1,000 mg in 50 mls @ 100 mls/hr IV NOW STA Stop: 12/23/21 20:37 Last Infusion: 12/23/21 21:11 Dose: 0 mls/hr Documented by: [id number] Admin: 12/23/21 21:06 Dose: 100 mls/hr Documented by: [id number] Lactated Ringer's (Lr) 1,000 mls @ 999 mls/hr IV .Q1H1M STA Stop: 12/23/21 21:08 Last Infusion: 12/23/21 23:31 Dose: 0 mls/hr Documented by: [id number] Admin: 12/23/21 21:55 Dose: 999 mls/hr Documented by: [id number] Sodium Chloride (Nss) 500 mls @ 500 mls/hr IV .Q1H ROHINI Stop: 12/24/21 00:56 Last Infusion: 12/24/21 01:23 Dose: 0 mls/hr Documented by: [id number] Admin: 12/24/21 00:28 Dose: 500 mls/hr Documented by: [id number] Sodium Chloride (Nss) 500 mls @ 500 mls/hr IV .Q1H ROHINI Stop: 12/24/21 08:59 Last Infusion: 12/24/21 11:16 Dose: 0 mls/hr Documented by: [id number] Admin: 12/24/21 08:45 Dose: 500 mls/hr Documented by: [id number] Lorazepam (Lorazepam 0.5 Mg Tab) 0.5 mg PO NOW STA Stop: 12/24/21 00:46 Last Admin: 12/24/21 01:33 Dose: 0.5 mg Documented by: [id number] Miscellaneous Information (Consult Pharmacy) 1 ea N/A NOW STA Stop: 12/23/21 21:29 Last Admin: 12/24/21 00:48 Dose: 1 ea Documented by: [id number] Ondansetron HCl (Ondansetron Inj 2 Mg/Ml 2 Ml Vial) 4 mg IV NOW STA Stop: 12/23/21 18:25 Last Admin: 12/23/21 18:42 Dose: 4 mg Documented by: [id number] Potassium Chloride (Potassium Chloride Crtab 20 Meq Tabcr) 40 meq PO NOW STA Stop: 12/23/21 19:31 Last Admin: 12/23/21 20:04 Dose: 40 meq Documented by: [id number] Potassium Chloride (Potassium Chloride Crtab 20 Meq Tabcr) 20 meq PO NOW STA Stop: 12/23/21 21:30 Last Admin: 12/24/21 02:13 Dose: 20 meq Documented by: [id number] Imaging Data Radiologist's Impression: Abdomen/Pelvis CT 12/23/21 20:08 CT abd pelvis wo con CLINICAL HISTORY: Abdominal and flank pain. Evaluate for hydronephrosis. COMPARISON STUDY: 04/30/2020 CT DOSE: 259.72 mGy.cm TECHNIQUE: Standard CT of the Abdomen and Pelvis was performed without IV contra st. The patient did not receive oral contrast. A dose lowering technique was utilized adhering to the principles of ALARA. FINDINGS: Lung base: The lung bases are clear. Abdominal cavity: There is no evidence for abdominal mass, adenopathy or ascites. Liver: The liver is homogeneous in attenuation on these limited noncontrast images..There is mild hepatomegaly. Spleen: The spleen is homogeneous in attenuation on these limited noncontrast images. Pancreas: The pancreas is homogeneous in attenuation on these limited noncontrast images. Gall Bladder: The gallbladder is well distended with no evidence for cholel ithiasis, wall thickening or pericholecystic edema.. Adrenal glands: The adrenal glands are normal in size and attenuation on these limited noncontrast images. Kidneys: There is evidence for swelling of the right kidney when compared to the left with minimal perinephric stranding. However, there is no definite hydronephrosis present. There is a 7 mm nonobstructing right renal calculus. There are 3, 2 to 3 mm nonobstructing left renal calculi. There is no gross renal mass on these limited noncontrast images. When compared to the previous CT, there is a calcified phlebolith within the pelvis on the right with no definite ureteral calculus identified. Bowel: The bowel loops are normally placed within the abdomen and pelvis without evidence for dilatation or obstruction. There is no evidence for mass lesion. There are no inflammatory changes present. There is no evidence for free air. The appendix is not visualized. Bladder: There is no evidence for focal bladder wall thickening, calculus or diverticulum. : There is no evidence for pelvic mass or adenopathy. There are cystic changes of the ovaries. Vasculature: There is no evidence for focal aneurysmal dilatation of the abdominal aorta. Osseous structures: There is no acute osseous pathology. IMPRESSION: 1. Swelling of the right kidney when compared to the left with mild perinephric stranding present. No evidence for hydronephrosis. Differential diagnosis on this limited noncontrast study is recent passage of a calculus versus possible pyelonephritis. 2. There are nonobstructing bilateral renal calculi present. 3. Nonvisualization of the appendix. ACT 112: Negative or not required by law. Electronically signed by: Justice Siu M.D. 12/24/2021 7:38 AM Abdominal and pelvis CT: Bilateral nephrolithiasis is seen. There was no bowel obstruction. There was a potential 4 millimeter stone in the distal right ureter. There was ectasia of the right renal collecting system with some perinephric edema. XR chest 1V portable CLINICAL HISTORY: Syncope. COMPARISON STUDY: Chest CT April 30, 2020. FINDINGS: Lung volumes are normal. Lungs are clear. There is no pneumothorax or pleural effusion. Cardiac size is normal. Mediastinal contours are normal. There is no evidence for pulmonary edema. Nipple shadow projects over the right lower lung. Old left-sided rib deformities are incidentally noted. There is levoscoliosis of the upper thoracic spine. IMPRESSION: No acute cardiopulmonary findings. No change in appearance of the chest. Discharge Plan Visit Data Chief Complaint: Syncope Stated Complaint: PASSING OUT ED Provider: Nehemiah Coombs Discharge Problem: Hypotension, UTI (urinary tract infection), Kidney stone, Tachycardia, Leukocytosis, Pyelonephritis Patient Disposition: Admitted As Inpatient Condition: Fair Discharge Instructions Interventions: ED Discharge Assessment Last Done: 12/23/21 23:04
[2021-12-23 18:45] LABS: Partial Thromboplastin Time 27.3 Seconds (21.0-31.0)
[2021-12-23 18:56] LABS: Troponin I < 0.03 ng/ml (0-0.04)
[2021-12-23 18:58] LABS: Pregnancy Test, Serum Negative (Negative)
[2021-12-23 19:00] LABS: Basophils # (auto) 0.02 K/uL (0-0.2); Basophils % (auto) 0.1 %; Eosinophils # (auto) 0.01 K/uL (0-0.5); Immature Granulocytes % (auto) 0.4 %; Lymphocytes # (auto) 1.76 K/uL (1.2-3.4); Lymphocytes % (auto) 7.3 %; Monocytes # (auto) 2.69 K/uL (0.11-0.59); Monocytes % (auto) 11.2 %; Neutrophils # (auto) 19.46 K/uL (1.4-6.5)
[2021-12-23 19:11] LABS: Alanine Aminotransferase 50 U/L (7-52); Albumin Globulin Ratio 1.1 (0.9-2); Albumin Level 3.7 gm/dl (3.4-5.0); Alkaline Phosphatase 128 U/L (34-104); Anion Gap 12 (3-11); Aspartate Aminotransferase 36 U/L (13-39); BUN Creatinine Ratio 9.4 (10-20); Bilirubin,Total 0.8 mg/dl (0.2-1.0); Blood Urea Nitrogen 10 mg/dl (6-23); Calcium 8.7 mg/dl (8.5-10.1); Carbon Dioxide 23 mmol/L (21-32); Chloride 99 mmol/L (98-107); Creatinine Clr Calc Pharmacy 67.9 ml/min; Est GFR (African American) 79.9 ml/min; Est GFR (Non-African American) 68.9 ml/min; Globulin 3.3 gm/dl (2.5-4.0); Glucose 135 mg/dl (70-99(Fasting)); Magnesium 1.4 mg/dl (1.7-2.4); Potassium 3.1 mmol/L (3.5-5.1); Sodium 134 mmol/L (136-145)
[2021-12-23 19:14] LABS: Influenza A virus by PCR Negative (Negative); Influenza B virus by PCR Negative (Negative)
[2021-12-23] MEDS ORDERED: POTASSIUM CHLORIDE CRTAB 20 MEQ TABCR PO STA ×2 (19:30→21:29)
[2021-12-23] MEDS ORDERED: POTASSIUM CHLORIDE / WTR 10 MEQ/100 ML PLCT IV ONE (19:30)
--- NOTE | 2021-12-23 19:30 | XRay Report ---
XR chest 1V portable CLINICAL HISTORY: Syncope. COMPARISON STUDY: Chest CT April 30, 2020. FINDINGS: Lung volumes are normal. Lungs are clear. There is no pneumothorax or pleural effusion. Car diac size is normal. Mediastinal contours are normal. There is no evidence for pulmonary edema. Nippl e shadow projects over the right lower lung. Old left-sided rib deformities are incidentally noted. T here is levoscoliosis of the upper thoracic spine. IMPRESSION: No acute cardiopulmonary findings. No change in appearance of the chest. ACT 112: Negative or not required by law. Electronically signed by: Aleksander Rasheed M.D. 12/23/2021 7:29 PM
[2021-12-23 20:02] LABS: Appearance Urine Cloudy (Clear); Bacteria Urine Automated 4+ (Negative); Blood Urine 3+ (Negative); Color Urine Orange; Glucose Urine UA Negative (Negative); Ketones Urine Negative (Negative); Leukocyte Esterase Urine 2+ (Negative); Nitrite Urine Positive (Negative); Protein Urine 2+ (Negative); RBC Urine Automated >30 /hpf (0-4); Urobilinogen Urine Negative (Negative); WBC Urine Automated >30 /hpf (0-5)
[2021-12-23 20:04] LABS: Bilirubin Urine 1+ (Negative)
[2021-12-23] MEDS: MAGNESIUM SULFATE / D5W 1 GM/100 ML BAG IV SCH ×2 (20:05→21:06)
[2021-12-23] MEDS ORDERED: cefTRIAXone SODIUM 1,000 MG/50 ML BAG IV STA (20:08)
[2021-12-23] MEDS ORDERED: LACTATED RINGER'S 1,000 ML IV STA (20:08)
[2021-12-23] MEDS ORDERED: CONSULT PHARMACY STA (21:28)
--- NOTE | 2021-12-23 23:05 | Urology Consultation ---
Date of Consultation December 23, 2021 Assessment & Plan (1) Nephrolithiasis: Patient has been admitted by the hospital service we recommend proceeding as follows: Due to the concern for sepsis I was initially concerned that patient may require an urgent ureteral stent this evening. However as noted in the HPI the patient had just eaten a sandwich prior to my arrival which would preclude taking patient to the operating room tonight unless absolutely necessary. Patient's blood pressure has responded to intravenous fluids and the patient says she is feeling better so I feel it is reasonable to delay any surgical intervention if needed. Continue antibiotics. The patient has received Rocephin in the emergency department. Blood and urine cultures have been sent and went once the results of these are available antibiotics can be tailored based on the results of these Continue IV fluid for hydration and blood pressure support Provide analgesics Provide antiemeticsstrain all urine and save any kidney stones for analysis Consider adding Flomax for expulsive therapy Explained to the patient she is a 4 mm kidney stone which may pass on its own. I have asked her to eat or drink for the remainder of the evening and she will be reassessed tomorrow morning at which time will be determined if patient requires cystoscopy with ureteral stent. Rest her understanding and agrees to proceed Remainder of plan as directed by primary service History of Present Illness Reason for Consultation: Nephrolithiasis History of Present Illness This is a 31-year-old female who presented to [facility] emergency department secondary to nonspecific myalgias for approximately 2 to 3 days. Patient says that she is currently in the middle of her menstrual cycle and attributed her initial symptoms to this. In addition to myalgias the patient says that she has had shakes and chills but has not noted any specific fevers. She has also had some nausea vomiting and notes over the past few days her oral intake has been limited. She specifically denies any dysuria or urinary frequency. She denies any flank pain. She also denies any abdominal pain. She has no prior history of kidney stones. She has no prior history of abdominal surgeries. Patient says because of her symptoms persisting she was concerned that she may have had COVID-19 and was going to [facility] to be tested for this however she had 2 fainting/syncopal episodes in route and was therefore taken to [facility] emergency department. Patient does note that her most recent oral intake was approximately 1 minute before my arrival to the room at which time she finished eating a sandwich. She also adds that she does use marijuana for medicinal purposes ( she has PTSD) and her most recent usage was approximately 2 days ago. In the emergency department the patient had labs and imaging which I independently reviewed. She did have a chest x-ray that showed no evidence of pneumonia. She did have a CT scan of the abdomen and pelvis that showed patient had a 4 mm kidney stone in the distal right ureter. Some perinephric edema are also associated and noted on the study. Labs include a CBC her white blood cell count is 24.0. Hemoglobin, hematocrit, and platelet count are all within normal range. Chemistry profile showed sodium and potassium are 134 and 3.1. BUN and creatinine were both noted to be normal. Her lactic acid level is elevated at 3.1. Magnesium was low at 1.4. There is no significant elevation of her bilirubin or transaminases but her alkaline phosphatase had a slight elevation at 128. TSH was noted be normal and a test was noted be negative. A urinalysis did show cloudy urine which had 3+ blood and was positive for nitrites. She was also noted to have 2+ leukocyte esterase and greater than 30 white blood cells per high-power field along with 4+ bacteria. She was tested for influenza a and B which were both negative and she was also tested for Covid which was negative. In the emergency department the patient was initially noted to be hypotensive and tachycardic with a systolic blood pressure in the 80s but this did respond to IV fluids. At the time of my interview the patient was resting comfortably in bed and she was in no distress. Allergies Allergy/AdvReac Type Severity Reaction Status Date / Time hydrocodone Allergy Intermediate HIVES Verified 12/23/21 19:17 codeine Allergy Mild rash Verified 12/23/21 19:17 tramadol Allergy Mild RASH Verified 12/23/21 19:17 mold Allergy Unknown Unknown Verified 12/23/21 19:17 Penicillins Allergy Unknown Unknown Verified 12/23/21 19:17 Home Medications Medication Instructions Recorded Confirmed Type ipcthzxs-jjp-TU 200 mcg-vit K 100 1 cap PO DAILY 04/30/20 12/23/21 History mcg-lycop 500 ztb-wqzvwk-G72 capsule (Daily Multivitamin) cqcmusr-ceopcjgfxccnb-sbsvqmch 250 2 tab PO BID PRN 12/23/21 12/23/21 History mg-250 mg-65 mg tablet (Excedrin Migraine) ibuprofen 200 mg tablet (Advil) 400 mg PO Q12 PRN 12/23/21 12/23/21 History Patient History Medical History (Updated 12/23/21 @ 23:08 by Sedrick Carvalho PA-C) Raynaud disease UTI (urinary tract infection) Surgical History No significant past surgical history Social History Smoking Status: Never smoker Hx Alcohol Use: Yes marital status: Single Current Living Situation: Alone current occupational status: employed Feels Safe at Home: Yes Review of Systems Constitutional: + chills and + sweats; no fever Eyes: no diplopia Ear, Nose, Mouth, Throat: no ear pain Respiratory: no cough and no dyspnea Cardiovascular: no chest pain Gastrointestinal: + nausea and + vomiting; no abdominal pain Genitourinary: no dysuria, no urinary frequency and no flank pain Musculoskeletal: no back pain Integumentary: no rash Neurologic: no localized weakness Physical Exam Constitutional: well developed and well nourished; no acute distress Eyes: no conjunctival abnormality ENMT: Ears: no hearing impairment and no external ear abnormality Mouth: no oropharynx abnormality Neck: trachea midline Respiratory: normal respiratory effort; no respiratory distress and no labored breathing Cardiovascular: Rate/Rhythm: regular rate and regular rhythm Gastrointestinal (Abdomen): Soft, nontender, nondistended. There is no pain with palpation. Musculoskeletal: No calf tenderness Skin: no rashes Neurologic: moves all extremities Psychiatric: A+Ox3, euthymic affect Results & Data ([facility]) Vital Signs (Past 12 Hours) Vital Signs Temp Pulse Pulse Resp BP BP Pulse Ox 12/23/21 21:54 110 H 18 108/70 100 12/23/21 21:00 107/72 12/23/21 20:45 120 H 19 96/63 L 12/23/21 20:33 110 H 16 101/75 12/23/21 20:15 106/70 12/23/21 20:00 94/65 L 12/23/21 19:55 97/62 L 12/23/21 19:40 103/63 02/07/22 19:37 94/64 L 12/23/21 19:30 91/65 L 12/23/21 19:25 91/59 L 12/23/21 19:20 96/60 L 12/23/21 19:10 91/59 L 12/23/21 19:05 97 H 15 12/23/21 19:00 99 H 16 98/60 L 98 12/23/21 18:55 100/61 12/23/21 18:50 93/60 L 12/23/21 18:46 104 H 17 92/52 L 100 12/23/21 18:45 104 H 19 97 12/23/21 18:44 106 H 16 96/58 L 12/23/21 18:39 101 H 20 88/49 L 100 12/23/21 18:21 92/57 L 12/23/21 18:03 100 12/23/21 18:02 102 H 16 82/44 L 97 12/23/21 17:46 36.3 C L 116 H 20 72/42 L 100 PG Care Time/CCT Total # of Minutes Spent Total Time Spent with Patient: Total time spent is greater than 50% in coordination of care (as documented) at patient's floor/unit and/or counseling patient: Coding Level of Care Code 35647 Inpt Consult Level 5 Diagnoses Nephrolithiasis N20.0
--- NOTE | 2021-12-23 23:47 | History and Physical Report ---
DATE OF ADMISSION: 12/23/2021. CHIEF COMPLAINT: Syncope. HISTORY OF PRESENT ILLNESS: This is a 31-year-old female with past medical history significant for Raynaud's syndrome, currently not taking any medication, marijuana use, comes because of syncopal episode. The patient says the last couple of days, she is feeling dizzy, chills and sweating, some nausea. She thought she was getting COVID, she is not vaccinated. But there was no fever, no headache, no diarrhea or constipation, no abdominal pain, no back pain, no burning micturition, no increased urinary frequency. No chest pain. She felt short of breath while she was going to the bathroom in the ER.Because of above symptoms for the last 2 days, she went to the [facility] and there she passed a couple of times, once in the elevator and once in the bathroom, but she fell slowly to the ground and she passed for a brief moment. She did not hurt herself, when the [facility] advised to come to the ER. In the ER, she was hypotensive and tachycardic and COVID came negative and white count was 24,000. Potassium was 3.1. Sodium 134. Magnesium was 1.4. Urinalysis was positive for 4+ bacteria and leukocyte esterase and nitrite positive. She was given Rocephin. She was somewhat tachycardic. Alert and oriented. Blood pressure is getting better with the fluids. ALLERGIES: HYDROCODONE, CODEINE, TRAMADOL, MOLD, PENICILLIN. PAST MEDICAL HISTORY: As mentioned above. PAST SURGICAL HISTORY: None. MEDICATIONS: Currently, the patient only takes sqos-akt-isyqbkh medications, multivitamins. FAMILY HISTORY: Significant for son has asthma, mother has thyroid disorder, maternal grandmother has arthritis. SOCIAL HISTORY: Single. As per Epic, someday smoker, alcohol occasionally, smokes marijuana. REVIEW OF SYSTEMS: As per HPI. Rest of the review of systems is negative. PHYSICAL EXAMINATION: GENERAL: The patient is of moderate build, not in acute distress. VITAL SIGNS: Temperature 36.3, pulse 110, respiratory rate 18, blood pressure 108/70, oxygen 100% on room air. HEENT: Pupils equal, round and reactive to light. Oral mucosa dry. NECK: No JVD. No neck masses. CARDIOVASCULAR: S1 and S2 heard. Tachycardia. No murmurs. RESPIRATORY: Normal AP diameter. No accessory muscle use. No wheezing, no crackles. ABDOMEN: Soft, bowel sounds present, nontender, no distention. CENTRAL NERVOUS SYSTEM: Cranial nerves II-XII grossly intact, nonfocal. EXTREMITIES: No edema, no erythema. LABORATORY DATA: WBC 24, hemoglobin 12.7, hematocrit 38.7, platelets 292. APTT 27.3. Sodium 134, potassium 3.1, chloride 99, bicarbonate 23, BUN 10, creatinine 1.06, serum glucose 135, lactate 2.2, calcium 8.7, magnesium 1.4, total bilirubin 0.8, AST 36, ALT 50, alkaline phosphatase 128. Troponin I less than 0.03. TSH is 2.3. HCG qualitative negative. Urine cloudy, +3 blood, positive for nitrite, positive for leukocyte esterase, +4 bacteria. Influenza A and B negative. SARS-CoV-2 negative. IMAGING DATA: Chest x-ray, no acute findings. CT of abdomen and pelvis, results are pending. ASSESSMENT AND PLAN: This is a 31-year-old female who presents with syncope, possibly from hypotension, possibly from sepsis. 1. Syncope, possibly from sepsis. The patient was tachycardic and hypotensive and lactate was elevated at 2.2. Sepsis most likely secondary to urinary tract infection, possible pyelonephritis. Await CT of the abdomen and pelvis. Aggressive IV fluids and repeat lactic acid. Starting on empiric IV cefepime. Follow the urine culture and blood cultures. Closely monitor in the tele floor. 2. History of Raynaud's syndrome: Currently not taking any medications. 3. Electrolyte abnormalities. We will replace. Follow the repeat labs. 4. Deep venous thrombosis prophylaxis: Lovenox. DISPOSITION: Admit to [facility] tele floor. Expect to discharge home and follow with family doctor. Addendum: CT scan preliminary report shows obstructive uropathy from kidney stone. Urology consulted. Plan for OR in am.Close monitor. Job ID: [id number] [facility]
[2021-12-23] MEDS ORDERED: SODIUM CHLORIDE 0.9% 500 ML IV SCH (23:57)
[2021-12-23] MEDS ORDERED: NITROGLYCERIN SL 0.4 MG/TAB TAB SL PRN (23:57)
[2021-12-23] MEDS ORDERED: ACETAMINOPHEN 325 MG TAB PO PRN (23:57)
[2021-12-24] MEDS: SODIUM CHLORIDE 0.9% 1000ML 1,000 ML IV SCH ×5 (00:16→23:21)
[2021-12-24] MEDS ORDERED: LORazepam 0.5 MG TAB PO STA (00:45)
[2021-12-24] MEDS: ENOXAPARIN INJ 40 MG/0.4 ML SYR SQ SCH ×2 (01:22→20:40)
[2021-12-24] MEDS: CEFEPIME 2,000 MG in SYRINGE 0 ML IV SCH ×3 (01:23→23:25)
[2021-12-24 05:30] LABS: Hematocrit (blood only) 34.3 % (37-47); Hemoglobin 11.1 g/dL (12.0-16.0); Mean Corpuscular Hemoglobin 28.9 pg (25-34); Mean Corpuscular Hgb Conc 32.4 g/dL (32-36); Mean Corpuscular Volume 89.3 fL (80-100); Mean Platelet Volume 9.8 fL (7.4-10.4); Platelet Count 242 K/uL (130-400); RDW Standard Deviation 42.7 fL (36.4-46.3); Red Blood Count 3.84 M/uL (4.2-5.4); White Blood Count 24.06 K/uL (4.8-10.8)
[2021-12-24 06:13] LABS: BUN Creatinine Ratio 14.1 (10-20); Calcium 8.2 mg/dl (8.5-10.1); Creatinine Clr Calc Pharmacy 101.4 ml/min; Est GFR (African American) 129.7 ml/min; Est GFR (Non-African American) 111.9 ml/min; Magnesium 1.8 mg/dl (1.7-2.4); Potassium 4.7 mmol/L (3.5-5.1)
[2021-12-24 06:24] LABS: Basophils # (auto) 0.02 K/uL (0-0.2); Basophils % (auto) 0.1 %; Immature Granulocytes # (auto) 0.07 K/uL (0.00-0.02); Immature Granulocytes % (auto) 0.3 %; Lymphocytes # (auto) 1.34 K/uL (1.2-3.4); Lymphocytes % (auto) 5.6 %; Monocytes # (auto) 1.74 K/uL (0.11-0.59); Monocytes % (auto) 7.2 %; Neutrophils # (auto) 20.89 K/uL (1.4-6.5); Neutrophils % (auto) 86.8 %; RBC Morphology Unremarkable
--- NOTE | 2021-12-24 07:39 | CT Scan Report ---
CT abd pelvis wo con CLINICAL HISTORY: Abdominal and flank pain. Evaluate for hydronephrosis. COMPARISON STUDY: 04/30/2020 CT DOSE: 259.72 mGy.cm TECHNIQUE: Standard CT of the Abdomen and Pelvis was performed without IV contrast. The patient did not receive oral contrast. A dose lowering technique was utilized adhering to the principles of JESI Pappas FINDINGS: Lung base: The lung bases are clear. Abdominal cavity: There is no evidence for abdominal mass, adenopathy or ascites. Liver: The liver is homogeneous in attenuation on these limited noncontrast images..There is mild hep atomegaly. Spleen: The spleen is homogeneous in attenuation on these limited noncontrast images. Pancreas: The pancreas is homogeneous in attenuation on these limited noncontrast images. Gall Bladder: The gallbladder is well distended with no evidence for cholelithiasis, wall thickening or pericholecystic edema.. Adrenal glands: The adrenal glands are normal in size and attenuation on these limited noncontrast im ages. Kidneys: There is evidence for swelling of the right kidney when compared to the left with minimal pe rinephric stranding. However, there is no definite hydronephrosis present. There is a 7 mm nonobstruc ting right renal calculus. There are 3, 2 to 3 mm nonobstructing left renal calculi. There is no anjana s renal mass on these limited noncontrast images. When compared to the previous CT, there is a calcif ied phlebolith within the pelvis on the right with no definite ureteral calculus identified. Bowel: The bowel loops are normally placed within the abdomen and pelvis without evidence for dilatat ion or obstruction. There is no evidence for mass lesion. There are no inflammatory changes present. There is no evidence for free air. The appendix is not visualized. Bladder: There is no evidence for focal bladder wall thickening, calculus or diverticulum. : There is no evidence for pelvic mass or adenopathy. There are cystic changes of the ovaries. Vasculature: There is no evidence for focal aneurysmal dilatation of the abdominal aorta. Osseous structures: There is no acute osseous pathology. IMPRESSION: 1. Swelling of the right kidney when compared to the left with mild perinephric stranding present. No evidence for hydronephrosis. Differential diagnosis on this limited noncontrast study is recent pass age of a calculus versus possible pyelonephritis. 2. There are nonobstructing bilateral renal calculi present. 3. Nonvisualization of the appendix. ACT 112: Negative or not required by law. Electronically signed by: Justice Siu M.D. 12/24/2021 7:38 AM
[2021-12-24] MEDS ORDERED: SODIUM CHLORIDE 0.9% 500 ML IV SCH (08:00)
--- NOTE | 2021-12-24 08:32 | Urology Progress Note ---
Date of Service December 24, 2021 Assessment & Plan (1) UTI (urinary tract infection): (2) Right ureteral stone: Plan: 31 yo F admitted for right ureteral stone and suspected UTI. - Plan of care reviewed with Dr. King. - Afebrile, nontoxic, lab work reviewed - creatinine 0.71, WBC 24.06. - UC&S prelim gram negative bacilli and blood cultures pending - On IV Cefepime, follow cultures. - Discussed surgical intervention with right ureteral stent placement. - Ureteral stents were discussed as well as post-operative issues and pain management. - Patient agreeable to proceed with surgical intervention. - Findings reviewed with Dr. King. Given her leukocytosis and urinary tract infection in the context of an obstructing right ureteral stone, will proceed with OR for cystoscopy, Right retrograde pyelogram and Right stent placement. - Risks and benefits to be reviewed with patient by Dr. King. OR notified. - Will cover with scheduled IV Cefepime preoperatively. - Keep NPO. - Patient in agreement with above plan, all questions answered. Admission and Anticipated Discharge Date Admission Date: December 23, 2021 Supervising Physician Co-Signing Physician Notes plan for cysto, right ureteral stent placement today - risks, benefits, and expectations reviewed Subjective Patient seen and examined at bedside this AM. Awake, alert and resting in bed. No acute issues overnight. Reports mild right sided abdominal/flank pain. Voiding spontaneously, no dysuria. Notes hematuria yesterday attributed to her menses, but clear today. No nausea or vomiting. Reports subjectively feeling hot and cold overnight. NPO since midnight. Review of Systems Constitutional: as per Subjective / HPI Respiratory: no dyspnea Cardiovascular: no chest pain Gastrointestinal: as per Subjective / HPI Genitourinary: as per Subjective / HPI Physical Exam Constitutional: well developed and well nourished; no acute distress and not ill appearing Neck: normal visual inspection Respiratory: normal respiratory effort and able to speak in complete sentences; no respiratory distress and no labored breathing Cardiovascular: Extremities: no pedal edema Gastrointestinal (Abdomen): Inspection/Auscultation: abdomen normal to inspec tion; abdomen not distended Percussion/Palpation: abdomen soft; abdomen nontender and no guarding Neurologic: moves all extremities and awake Psychiatric: Orientation: alert, oriented x 3 and cooperative Eye Contact: good eye contact Genitourinary: no CVA tenderness Results & Data ([facility]) Vital Signs (Past 12 Hours) Vital Signs Temp Pulse Pulse Resp BP BP Pulse Ox 12/24/21 08:00 36.8 C 110 H 18 101/65 97 12/24/21 04:23 37.3 C 120 H 18 92/57 L 94 12/23/21 23:57 36.9 C 102 H 112 H 18 104/68 100 12/23/21 21:54 110 H 18 108/70 100 12/23/21 21:00 107/72 12/23/21 20:45 120 H 19 96/63 L 12/23/21 20:33 110 H 16 101/75 PG Care Time/CCT Total # of Minutes Spent Total Time Spent with Patient: Total time spent is greater than 50% in coordination of care (as documented) at patient's floor/unit and/or counseling patient: Coding Level of Care Code 14561 Subseq Hosp Care Lvl 2 Diagnoses UTI (urinary tract infection) N39.0 Right ureteral stone N20.1
[2021-12-24] MEDS ORDERED: ATROPINE SULFATE 0.1 MG/ML 10ML SYR IV PRN (08:45)
[2021-12-24] MEDS ORDERED: fentaNYL citrate 100 MCG/2 ML VIAL IV PRN (08:45)
[2021-12-24] MEDS ORDERED: ONDANSETRON INJ 2 MG/ML 2 ML VIAL IV PRN (08:45)
[2021-12-24] MEDS ORDERED: ePHEDrine sulfate 50 MG/ML AMP IV PRN (08:45)
--- NOTE | 2021-12-24 08:45 | Anesthesiology Consultation ---
Date of Service December 24, 2021 Assessment & Plan (1) Encounter for pre-operative examination: Chart Review Chart Review: Acceptable Risk for Surgery and Patient NOT seen in Pre Admission Testing History Surgery Operation Date: 12/24/21 14:25 Proposed Procedures p Cystoscopy, Right Ureteral Stent Insertion - Valdo King MD Height/Weight Height: 5 ft 5 in Weight: 59.1 kg Allergies Allergy/AdvReac Type Severity Reaction Status Date / Time hydrocodone Allergy Intermediate HIVES Verified 12/23/21 19:17 codeine Allergy Mild rash Verified 12/23/21 19:17 tramadol Allergy Mild RASH Verified 12/23/21 19:17 mold Allergy Unknown Unknown Verified 12/23/21 19:17 Penicillins Allergy Unknown Unknown Verified 12/23/21 19:17 Medications Home Medications Medication Instructions Recorded Confirmed Last Taken ummtwyjp-hre-CV 200 mcg-vit K 100 1 cap PO DAILY 04/30/20 12/23/21 04/29/20 mcg-lycop 500 nci-zbbvpb-K03 capsule (Daily Multivitamin) cdpfkqq-tvozewbenvnsl-vmkxwhku 250 2 tab PO BID PRN 12/23/21 12/23/21 Unknown mg-250 mg-65 mg tablet (Excedrin Migraine) ibuprofen 200 mg tablet (Advil) 400 mg PO Q12 PRN 12/23/21 12/23/21 Unknown Active Medications Generic Name Dose Route Start Last Admin Trade Name Freq PRN Reason Stop Dose Admin Enoxaparin Sodium 40 mg 12/24/21 00:00 12/24/21 01:22 Enoxaparin Inj 40 Mg/0.4 Ml Syr SQ 01/23/22 00:00 40 mg HS ROHINI Administration Sodium Chloride 1,000 mls @ 150 mls/hr 12/24/21 01:00 12/24/21 01:34 Nss 1000ml IV 01/23/22 00:59 150 mls/hr .Q6H40M ROHINI Administration Cefepime HCl 2,000 mg/ Syringe 20 mls @ 5 mls/min 12/24/21 00:00 12/24/21 01:23 IV 01/03/22 00:00 5 mls/min Q12H ROHINI Administration Protocol NPO Date Last Intake of Fluids: 12/24/21 Time Last Intake of Fluids: 02:00 Last Intake of Fluids Comment: sip with meds Date Last Intake of Solids: 12/23/21 Time Last Intake of Solids: 22:00 Past Medical History Medical History (Updated 12/24/21 @ 08:45 by Samaria Vidal MD) Raynaud disease UTI (urinary tract infection) Past Surgical History Surgical History No significant past surgical history Social History Smoking Status: Never smoker Hx Alcohol Use: No Hx Substance Use: Yes substance use type: marijuana Last Used Substance: Days (ago) Physical Exam Vital Signs Last Vital Signs Temp 36.8 C 12/24/21 08:00 Pulse 110 H 12/24/21 08:00 Resp 18 12/24/21 08:00 BP 101/65 12/24/21 08:00 Pulse Ox 97 12/24/21 08:00 Testing Laboratory Results 12/24/21 05:20 12/24/21 05:20 APTT 27.3 Seconds (21.0-31.0) 12/23/21 17:53 Urine Color [place] 12/23/21 19:35 Urine Appearance Cloudy (Clear) A 12/23/21 19:35 Urine pH 6.0 (4.5-7.5) 12/23/21 19:35 Ur Specific [place] 1.020 (1.000-1.030) 12/23/21 19:35 Urine Protein 2+ (Negative) H 12/23/21 19:35 Urine Glucose (UA) Negative (Negative) 12/23/21 19:35 Urine Ketones Negative (Negative) 12/23/21 19:35 Urine Nitrite Positive (Negative) A 12/23/21 19:35 Ur Leukocyte Esterase 2+ (Negative) H 12/23/21 19:35 Urine WBC (Auto) >30 /hpf (0-5) H 12/23/21 19:35 Urine RBC (Auto) >30 /hpf (0-4) H 12/23/21 19:35 U Hyaline Cast (Auto) 5-10 /lpf (0-5) H 12/23/21 19:35 U Epithel Cells (Auto) 10-20 /lpf (0-5) H 12/23/21 19:35 Urine Bacteria (Auto) 4+ (Negative) H 12/23/21 19:35 12/23/21 19:35 Urine Culture - Preliminary Urine,Clean Catch Gram negative bacilli
[2021-12-24] MEDS ORDERED: MIDAZOLAM HCL 1 MG/ML 2ML VIAL ONE (09:00)
[2021-12-24] MEDS ORDERED: fentaNYL citrate 100 MCG/2 ML VIAL ONE (09:01)
[2021-12-24] MEDS ORDERED: LIDOCAINE 2% 2 ML VIAL/AMP(20MG/ML) INFIL ONE (09:03)
[2021-12-24] MEDS ORDERED: PROPOFOL IV EMULSION 10 MG/ML 20 ML VIAL IV ONE (09:03)
--- NOTE | 2021-12-24 10:06 | Operative Report ---
PG Post Operative Report Pre & Post Diagnosis Operation Date: 12/24/21 14:25 Pre-Op Diagnosis: Right ureteral stone Post-Op Diagnosis: Right ureteral stone I identified the patient and participated in the time-out.: Yes Procedure Operation Date: 12/24/21 14:25 Actual Procedures p Cystoscopy, Right Ureteral Stent Insertion(Right) - Valdo King MD Surgeon Moose King MD Visual Basic Programmer none Estimated Blood Loss 0 Findings Consistent with Post-Op Diagnosis Specimens none Description of Procedure The patient was identified in the preoperative holding area, appropriate informed consents were reviewed and completed and the patient was transferred to the operative suite. Upon arrival, appropriate antibiotics and anesthesia were administered and the patient was placed in dorsal lithotomy position and prepped and draped in sterile fashion. To begin the case to pass a 22 Ecuadorean cystoscope with 30 degree lens. Inspection revealed a healthy-appearing bladder. Ureteral orifices were in orthotopic position. Urine was clear without inflammation of the bladder. I turned my attention to the right UO and cannulated with a sensor wire and a 5 Ecuadorean open-ended catheter. The wire advanced the kidney without difficulty and there was not the discharge of any significant purulent urine at that time. After confirming that the wire was in the kidney I placed a 6 Ecuadorean by 24 cm double-J ureteral stent seeing a good curl in the kidney as well as the bladder. It does appear that the stone may have moved retrograde and into the kidney. There is seems to be a fluoroscopic density just underneath the curl on the imaging confirming stent positioning. I also took a picture of the distal ureter and I could not readily see the stone in that area. At the end of the case she was reversed of anesthesia and taken to the recovery room in stable condition. There were no complications. I attest to the content of the Intraoperative Record and any orders documented therein. Any exceptions are noted below.
--- NOTE | 2021-12-24 10:38 | Anesthesiology Progress Note ---
Date of Service December 24, 2021 Anesthesia Post Procedure Vital Signs Vital Signs: Temp Pulse Pulse Pulse Resp BP BP 12/24/21 10:35 37 C 107 H 18 112/67 12/24/21 10:25 108 H 17 106/70 12/24/21 10:15 112 H 16 109/67 12/24/21 10:05 37.1 C 111 H 14 112/57 L 12/24/21 08:49 37.4 C 133 H 20 118/70 12/24/21 08:00 36.8 C 110 H 18 101/65 12/24/21 04:23 37.3 C 120 H 18 92/57 L 12/23/21 23:57 36.9 C 102 H 112 H 18 104/68 12/23/21 21:54 110 H 18 108/70 12/23/21 21:00 107/72 12/23/21 20:45 120 H 19 96/63 L 12/23/21 20:33 110 H 16 101/75 12/23/21 20:15 106/70 12/23/21 20:00 94/65 L 12/23/21 19:55 97/62 L 12/23/21 19:40 103/63 12/23/21 19:37 94/64 L 12/23/21 19:30 91/65 L 12/23/21 19:25 91/59 L 12/23/21 19:20 96/60 L 12/23/21 19:10 91/59 L 12/23/21 19:05 97 H 15 12/23/21 19:00 99 H 16 98/60 L 12/23/21 18:55 100/61 12/23/21 18:50 93/60 L 12/23/21 18:46 104 H 17 92/52 L 12/23/21 18:45 104 H 19 12/23/21 18:44 106 H 16 96/58 L 12/23/21 18:39 101 H 20 88/49 L 12/23/21 18:21 92/57 L 12/23/21 18:03 12/23/21 18:02 102 H 16 82/44 L 12/23/21 17:46 36.3 C L 116 H 20 72/42 L Pulse Ox 12/24/21 10:35 95 12/24/21 10:25 95 12/24/21 10:15 100 12/24/21 10:05 100 12/24/21 08:49 95 12/24/21 08:00 97 12/24/21 04:23 94 12/23/21 23:57 100 12/23/21 21:54 100 12/23/21 21:00 12/23/21 20:45 12/23/21 20:33 12/23/21 20:15 12/23/21 20:00 12/23/21 19:55 12/23/21 19:40 12/23/21 19:37 12/23/21 19:30 12/23/21 19:25 12/23/21 19:20 12/23/21 19:10 12/23/21 19:05 12/23/21 19:00 98 12/23/21 18:55 12/23/21 18:50 12/23/21 18:46 100 12/23/21 18:45 97 12/23/21 18:44 12/23/21 18:39 100 12/23/21 18:21 12/23/21 18:03 100 12/23/21 18:02 97 12/23/21 17:46 100 Transfer of Care Handoff Completed per policy Notes Mental Status: alert / awake / arousable and participated in evaluation Patient Amnestic to Procedure: Yes Nausea / Vomiting: adequately controlled Pain: adequately controlled Airway Patency, RR, SpO2: stable & adequate BP & HR: stable & adequate Hydration State: stable & adequate Anesthetic Complications: no major complications apparent and Pt Satisfied with anesthetic care
--- NOTE | 2021-12-24 11:04 | Fluoroscopy Report ---
FL KUB CLINICAL HISTORY: RT CYSTO/STENT COMPARISON STUDY: CT of the abdomen and pelvis December 23, 2021. FLUOROSCOPY TIME: 7 seconds. FLUOROSCOPIC IMAGES: 2 FINDINGS: Fluoroscopy was provided during cystoscopy and right ureteral stent placement. Probable rig ht renal calculus is noted. IMPRESSION: Fluoroscopy provided during cystoscopy and right ureteral stent placement. ACT 112: Negative or not required by law. Electronically signed by: Aleksander Rasheed M.D. 12/24/2021 11:03 AM
[2021-12-24] MEDS ORDERED: IBUPROFEN 200 MG TAB PO PRN (11:06)
[2021-12-24] MEDS ORDERED: NON-FORMULARY MEDICATION (Aspirin-Acetaminophen-Caffeine [Excedrin Migraine] 250-250-65 mg PO PRN (11:06)
[2021-12-24] MEDS: TAMSULOSIN HCL 0.4 MG CAP PO SCH (12:13)
--- NOTE | 2021-12-24 17:01 | Hospitalist Progress Note ---
Date of Service December 24, 2021 Assessment & Plan Plan: GNR Pyelonephritis Sepsis -Sepsis present on admission with fever, leukocytosis -continue cefepime. Follow up urine culture. Blood cultures pending -continue IVF Bilateral kidney stones Right kidney swelling -s/p cystoscopy with right ureteral stent placement -continue flomax, strain urine -will need to follow up with Urology OP for stent removal Hypokalemia Hypomagnesemia -repleted Raynaud's -not on medications Legal issues -notified by RN that patient has an active warrant and will need to be released into police custody when she is discharged Admission and Anticipated Discharge Date Admission Date: December 23, 2021 Anticipated date of discharge: 12/25/21 Subjective Went to OR today for placement of ureteral stent Patient feels well Tolerating diet Flank pain resolved Afebrile Physical Exam Physical Exam: Thin, no acute distress, pleasant Respiratory: breathing comfortably on room air, no wheezing/rhonchi/rales Cardiovascular: regular rate and rhythm, no murmurs/rubs/gallops Gastrointestinal (Abdomen): soft,non tender, non distended Musculoskeletal: no edema Neurologic: awake, alert, spontaneously moving extremities Genitourinary: No flank tenderness Results & Data Results & Data ([facility]) Vital Signs (Past 12 Hours) Vital Signs Temp Pulse Pulse Resp BP Pulse Ox 12/24/21 12:18 36.5 C 100 H 18 129/64 98 12/24/21 11:00 37.2 C 114 H 18 107/62 95 12/24/21 10:35 37 C 107 H 18 112/67 95 12/24/21 10:25 108 H 17 106/70 95 12/24/21 10:15 112 H 16 109/67 100 12/24/21 10:05 37.1 C 111 H 14 112/57 L 100 12/24/21 08:49 37.4 C 133 H 20 118/70 95 12/24/21 08:00 36.8 C 110 H 18 101/65 97 Laboratory Results Short CBC 12/23/21 12/24/21 Range/Units 17:53 05:20 WBC 24.04 H 24.06 H (4.8-10.8) K/uL Hgb 12.7 11.1 L (12.0-16.0) g/dL Hct 38.7 34.3 L (37-47) % Plt Count 292 242 (130-400) K/uL BMP 12/23/21 12/24/21 17:53 05:20 Sodium 134 L 136 Potassium 3.1 L 4.7 D Chloride 99 110 H Carbon Dioxide 23 23 BUN 10 10 Creatinine 1.06 0.71 D Glucose 135 H 106 H Calcium 8.7 8.2 L Cardiac Enzymes 12/23/21 Range/Units 17:53 Troponin I < 0.03 (0-0.04) ng/ml Liver Function 12/23/21 Range/Units 17:53 Total Bilirubin 0.8 (0.2-1.0) mg/dl AST 36 (13-39) U/L ALT 50 (7-52) U/L Alkaline Phosphatase 128 H (34-104) U/L Albumin 3.7 (3.4-5.0) gm/dl Urine 12/23/21 Range/Units 19:35 Urine Color [place] Urine Appearance Cloudy A (Clear) Urine pH 6.0 (4.5-7.5) Ur Specific [place] 1.020 (1.000-1.030) Urine Protein 2+ H (Negative) Urine Glucose (UA) Negative (Negative) Medications Administered Current Inpatient Medications Acetaminophen (Acetaminophen 325 Mg Tab) 650 mg PO Q4H PRN PRN Reason: Pain or Fever Stop: 01/22/22 23:56 Enoxaparin Sodium (Enoxaparin Inj 40 Mg/0.4 Ml Syr) 40 mg SQ HS [facility] Stop: 01/23/22 00:00 Last Admin: 12/24/21 01:22 Dose: 40 mg Documented by: Sodium Chloride (Nss 1000ml) 1,000 mls @ 150 mls/hr IV .Q6H40M [facility] Stop: 01/23/22 00:59 Last Admin: 12/24/21 08:45 Dose: 150 mls/hr Documented by: Cefepime HCl 2,000 mg/ Syringe 20 mls @ 5 mls/min IV Q12H [facility]; Protocol Stop: 01/03/22 00:00 Last Admin: 12/24/21 12:13 Dose: 5 mls/min Documented by: Ibuprofen (Ibuprofen 200 Mg Tab) 400 mg PO Q12H PRN PRN Reason: Pain Stop: 01/23/22 11:05 Last Admin: 12/24/21 14:52 Dose: 400 mg Documented by: Nitroglycerin (Nitroglycerin Sl 0.4 Mg/Tab Tab) 0.4 mg SL UD PRN PRN Reason: Chest Pain Stop: 01/22/22 23:56 Ondansetron HCl (Ondansetron Inj 2 Mg/Ml 2 Ml Vial) 4 mg IV Q6H PRN PRN Reason: Nausea Stop: 01/22/22 23:56 Tamsulosin HCl (Tamsulosin Hcl 0.4 Mg Cap) 0.4 mg PO [facility] Stop: 01/23/22 08:59 Last Admin: 12/24/21 12:13 Dose: 0.4 mg Documented by:
--- NOTE | 2021-12-24 22:40 | Electrocardiogram Report ---
Test Reason : Blood Pressure : / mmHG Vent. Rate : 096 BPM Atrial Rate : 096 BPM P-R Int : 120 ms QRS Dur : 092 ms QT Int : 368 ms P-R-T Axes : 074 077 050 degrees QTc Int : 464 ms Normal sinus rhythm Biatrial enlargement Incomplete right bundle branch block Abnormal ECG When compared with ECG of 30-APR-2020 05:14, No significant change was found Confirmed by Wili Foreman ([id number]) on 12/24/2021 10:39:52 PM Referred By: REFERRED SELF Confirmed By:Wili Foreman
[2021-12-25] MEDS: ONDANSETRON INJ 2 MG/ML 2 ML VIAL IV PRN ×2 (00:43→12:31)
[2021-12-25] MEDS: SODIUM CHLORIDE 0.9% 1000ML 1,000 ML IV SCH ×3 (06:10→19:30)
--- NOTE | 2021-12-25 08:14 | Urology Progress Note ---
Date of Service December 25, 2021 Assessment & Plan (1) Right ureteral stone: (2) UTI (urinary tract infection): Plan: 31yo F admitted for right ureteral stone and suspected UTI. - POD #1 s/p Cystoscopy, Right Ureteral Stent Insertion with Dr. King - Doing well post procedure, tolerating the ureteral stent with minimal bother. - Afebrile, VSS. - Labs reviewed - White count downtrending, Creatinine normal. - UC&S prelim E.coli and blood cultures preliminary no growth [id number] - On IV Cefepime, follow cultures. - Voiding spontaneously. - Plan to D/C when medically stable per primary team with course of PO antibiotics per final culture, Tamsulosin, prn Pyridium and prn pain medication for stent management. - Will arrange outpatient follow-up with our service. - Expected clinical course reviewed, all questions answered. - will sign-off, please contact us with any further questions, concerns, or changes in patient status. Admission and Anticipated Discharge Date Admission Date: December 23, 2021 Subjective Pt examined at bedside this AM. Asleep on arrival, awakened to name. No acute distress. No fevers. Reports right flank/abdominal pain. Voiding spontaneously, some mild intermittent hematuria and dysuria. Tolerating PO diet. Some nausea earlier after receiving IV antibiotics per her report. Managed nausea with zofran. No vomiting. Straining all urine. Review of Systems Constitutional: as per Subjective / HPI Gastrointestinal: as per Subjective / HPI Genitourinary: as per Subjective / HPI Physical Exam Constitutional: well developed and well nourished; no acute distress and not ill appearing Respiratory: normal respiratory effort and able to speak in complete sente nces; no respiratory distress and no labored breathing Gastrointestinal (Abdomen): Inspection/Auscultation: abdomen normal to inspection; abdomen not distended Percussion/Palpation: abdomen soft; abdomen nontender and no guarding Neurologic: moves all extremities and awake Psychiatric: Orientation: alert, oriented x 3 and cooperative Genitourinary: no CVA tenderness Results & Data ([facility]) Vital Signs (Past 12 Hours) Vital Signs Temp Pulse Pulse Resp BP Pulse Ox 12/25/21 08:10 36.4 C L 71 18 115/75 96 12/25/21 07:43 57 L 12/25/21 04:25 36.3 C L 72 16 116/76 98 12/25/21 01:37 71 12/24/21 23:20 36.6 C 93 H 18 114/75 99 PG Care Time/CCT Total # of Minutes Spent Total Time Spent with Patient: Total time spent is greater than 50% in coordination of care (as documented) at patient's floor/unit and/or counseling patient: Coding Level of Care Code 57079 Subseq Hosp Care Lvl 2 Diagnoses UTI (urinary tract infection) N10 Urinary tract infection type: acute pyelonephritis Right ureteral stone N20.1 (1) UTI (urinary tract infection) Urinary tract infection type: acute pyelonephritis Qualified Code(s): N10 - Acute pyelonephritis
[2021-12-25] MEDS: TAMSULOSIN HCL 0.4 MG CAP PO SCH (08:16)
[2021-12-25 11:23] LABS: Hematocrit (blood only) 31.5 % (37-47); Hemoglobin 10.2 g/dL (12.0-16.0); Mean Corpuscular Hgb Conc 32.4 g/dL (32-36); Mean Corpuscular Volume 89.5 fL (80-100); Mean Platelet Volume 10.4 fL (7.4-10.4); Platelet Count 280 K/uL (130-400); RDW Coefficient of Variation 13.3 % (11.5-14.5); Red Blood Count 3.52 M/uL (4.2-5.4); White Blood Count 16.55 K/uL (4.8-10.8)
[2021-12-25 11:44] LABS: Immature Granulocytes # (auto) 0.05 K/uL (0.00-0.02); Immature Granulocytes % (auto) 0.3 %; Lymphocytes # (auto) 1.62 K/uL (1.2-3.4); Lymphocytes % (auto) 9.8 %; Monocytes # (auto) 0.89 K/uL (0.11-0.59); Monocytes % (auto) 5.4 %; Neutrophils # (auto) 13.99 K/uL (1.4-6.5); Neutrophils % (auto) 84.5 %
[2021-12-25 11:48] LABS: BUN Creatinine Ratio 16.7 (10-20); Calcium 8.2 mg/dl (8.5-10.1); Creatinine Clr Calc Pharmacy 92.3 ml/min; Est GFR (African American) 115.8 ml/min; Est GFR (Non-African American) 99.9 ml/min
[2021-12-25] MEDS: CEFEPIME 2,000 MG in SYRINGE 0 ML IV SCH (12:31)
--- NOTE | 2021-12-25 14:27 | Hospitalist Progress Note ---
Date of Service December 25, 2021 Assessment & Plan (1) Pyelonephritis: (2) Pre-syncope: (3) Right ureteral stone: (4) Leukocytosis: (5) Hypotension: (6) UTI (urinary tract infection): (7) Kidney stone: (8) Tachycardia: Plan: s/p ureteral stent, de-escalated to PO Cipro, DC tomorrow when WBCs checked Labs Checked follow up outpatient ROS-No Headache, No Visual Changes, No Nausea, No Vomiting, No Fever, No Chills, No Neck Pain or Stiffness, No Chest Pain, No Palpitations, No SOB, No LOREDO, No Cough, No Sputum, No Wheezing, No Abdominal Pain, No Diarrhea, No Hematemesis, No Hemoptysis, No Unexpected Weight Loss, No Flank pain, No Melena, No Hematochezia, No Frequency, No Urgency, No Burning, No Hematuria, No Rashes, No Diaphoresis. Appetite is Normal Physical Exam Gen-AAO x 3, NAD, Afebrile Head-NCAT, EOMI, PERRLA, Anicteric Sclera, No Posterior Pharyngeal Erythema Neck-Supple, No JVD, No Thyromegaly, No Masses, No LAD, No Bruits Lungs-Clear to Auscultation Bilaterally, No Rales, No Rhonchi, No Wheezing, No Crepitus Chest-No S4, +S1, +S2, No S3, No Murmurs, No Rubs, No Gallops, No Ectopy Abdomen-Soft, Bowel Sounds Present, Non Tender, Non Distended, No Hepatomegaly, No Splenomegaly, No Palpable Masses, No Rebound, No Rigidity, No Guarding Musculoskeletal-Full Range of Motion Bilaterally, No CVAT Extremities-No Cyanosis, No Clubbing, No Edema Nuero-Cranial Nerves II-XII grossly intact, Motor WNL, DTRs WNL, Strength WNL, Non Focal Psych-Normal Mood Admission and Anticipated Discharge Date Admission Date: December 23, 2021 Results & Data Results & Data ([facility]) Vital Signs (Past 12 Hours) Vital Signs Temp Pulse Pulse Resp BP Pulse Ox 12/25/21 11:26 36.3 C L 61 18 109/67 100 12/25/21 08:10 36.4 C L 71 18 115/75 96 12/25/21 07:43 57 L 12/25/21 04:25 36.3 C L 72 16 116/76 98 (1) Hypotension Hypotension type: unspecified hypotension type Qualified Code(s): I95.9 - Hypotension, unspecified (2) UTI (urinary tract infection) Urinary tract infection type: acute pyelonephritis Qualified Code(s): N10 - Acute pyelonephritis (3) Leukocytosis Leukocytosis type: unspecified Qualified Code(s): D72.829 - Elevated white blood cell count, unspecified
[2021-12-25] MEDS: LORazepam 0.5 MG TAB PO PRN (18:37)
[2021-12-25] MEDS: CIPROFLOXACIN 500 MG TAB PO SCH (21:14)
[2021-12-25] MEDS: ENOXAPARIN INJ 40 MG/0.4 ML SYR SQ SCH (21:14)
[2021-12-26] MEDS: SODIUM CHLORIDE 0.9% 1000ML 1,000 ML IV SCH ×3 (02:45→09:57)
[2021-12-26] MEDS: LORazepam 0.5 MG TAB PO PRN (05:29)
[2021-12-26 09:03] LABS: Hematocrit (blood only) 28.7 % (37-47); Hemoglobin 9.1 g/dL (12.0-16.0); Mean Corpuscular Hemoglobin 28.3 pg (25-34); Mean Corpuscular Hgb Conc 31.7 g/dL (32-36); Mean Corpuscular Volume 89.1 fL (80-100); Platelet Count 275 K/uL (130-400); RDW Coefficient of Variation 13.2 % (11.5-14.5); RDW Standard Deviation 43.2 fL (36.4-46.3); Red Blood Count 3.22 M/uL (4.2-5.4); White Blood Count 10.45 K/uL (4.8-10.8)
[2021-12-26] MEDS: TAMSULOSIN HCL 0.4 MG CAP PO SCH (09:04)
[2021-12-26] MEDS: CIPROFLOXACIN 500 MG TAB PO SCH (09:04)
--- NOTE | 2021-12-26 10:05 | Discharge Summary ---
Date of Service December 26, 2021 Admission HPI Per Admitting Provider This is a 31-year-old female with past medical history significant for Raynaud's syndrome, currently not taking any medication, marijuana use, comes because of syncopal episode. The patient says the last couple of days, she is feeling dizzy, chills and sweating, some nausea. She thought she was getting COVID, she is not vaccinated. But there was no fever, no headache, no diarrhea or constipation, no abdominal pain, no back pain, no burning micturition, no increased urinary frequency. No chest pain. She felt short of breath while she was going to the bathroom in the ER.Because of above symptoms for the last 2 days, she went to the [facility] and there she passed a couple of times, once in the elevator and once in the bathroom, but she fell slowly to the ground and she passed for a brief moment. She did not hurt herself, when the [facility] advised to come to the ER. In the ER, she was hypotensive and tachycardic and COVID came negative and white count was 24,000. Potassium was 3.1. Sodium 134 . Magnesium was 1.4. Urinalysis was positive for 4+ bacteria and leukocyte esterase and nitrite positive. She was given Rocephin. She was somewhat tachycardic. Alert and oriented. Blood pressure is getting better with the fluids. Admission Exam Per Admitting Provider GENERAL: The patient is of moderate build, not in acute distress. VITAL SIGNS: Temperature 36.3, pulse 110, respiratory rate 18, blood pressure 108/70, oxygen 100% on room air. HEENT: Pupils equal, round and reactive to light. Oral mucosa dry. NECK: No JVD. No neck masses. CARDIOVASCULAR: S1 and S2 heard. Tachycardia. No murmurs. RESPIRATORY: Normal AP diameter. No accessory muscle use. No wheezing, no crackles. ABDOMEN: Soft, bowel sounds present, nontender, no distention. CENTRAL NERVOUS SYSTEM: Cranial nerves II-XII grossly intact, nonfocal. EXTREMITIES: No edema, no erythema. Principal Diagnosis Acute Pyelonephritis/UTI E Coli Bacteria Leukocytosis Ureter Stone Discharge Exam see below Discharge Data Allergies Allergy/AdvReac Type Severity Reaction Status Date / Time hydrocodone Allergy Intermediate HIVES Verified 12/23/21 19:17 codeine Allergy Mild rash Verified 12/23/21 19:17 tramadol Allergy Mild RASH Verified 12/23/21 19:17 mold Allergy Unknown Unknown Verified 12/23/21 19:17 Penicillins Allergy Unknown Unknown Verified 12/23/21 19:17 Consultations 12/23/21 20:19 ED Decision to Admit Stat 12/23/21 22:42 Consult Urology Stat Procedures Performed Operation Date: 12/24/21 14:25 Actual Procedures p Cystoscopy, Right Ureteral Stent Insertion(Right) - Valdo King MD Ordered Studies 12/23/21 20:08 CT abd pelvis wo con Stat 12/24/21 09:30 FL KUB Routine Current Diagnoses Elevated white blood cell count, unspecified (12/23/21) Hypotension, unspecified (12/23/21) Acute pyelonephritis (12/23/21) Tubulo-interstitial nephritis, not specified as acute or chronic (12/23/21) Calculus of kidney (12/23/21) Calculus of ureter (12/23/21) Urinary tract infection, site not specified (12/23/21) Tachycardia, unspecified (12/23/21) Syncope and collapse (12/23/21) Encounter for other preprocedural examination (12/23/21) Allergies hydrocodone Allergy (Intermediate, Verified 12/23/21 19:17) HIVES codeine Allergy (Mild, Verified 12/23/21 19:17) rash tramadol Allergy (Mild, Verified 12/23/21 19:17) RASH mold Allergy (Unknown, Verified 12/23/21 19:17) Unknown Penicillins Allergy (Unknown, Verified 12/23/21 19:17) Unknown Height/Weight/Isolation Height 5 ft 5 in Weight 61.6 kg Chemistry 12/25/21 11:12 Sodium 136 Potassium 4.0 Chloride 110 H Carbon Dioxide 23 Anion Gap 3 BUN 13 Creatinine 0.78 Glucose 109 H Microbiology 12/23/21 20:46 Blood Aerobic Blood Culture - Preliminary No growth in Aerobic bottle after 48 hours. 12/23/21 20:46 Blood Anaerobic Blood Culture - Preliminary No growth in Anaerobic bottle after 48 hours. 12/23/21 20:33 Blood Aerobic Blood Culture - Preliminary No growth in Aerobic bottle after 48 hours. 12/23/21 20:33 Blood Anaerobic Blood Culture - Preliminary No growth in Anaerobic bottle after 48 hours. 12/23/21 19:35 Urine,Clean Catch Urine Culture - Final Escherichia coli Hospital Course (1) Pyelonephritis: (2) Pre-syncope: (3) Right ureteral stone: (4) Leukocytosis: (5) Hypotension: (6) UTI (urinary tract infection): (7) Kidney stone: (8) Tachycardia: s/p ureteral stent, de-escalated abx to PO Cipro, DC today, WBCs are normal Labs Checked follow up outpatient Cipro 500 BID x 7 days, Compazine for Nausea ROS-No Headache, No Visual Changes, +Nausea c IV Abx, No Vomiting, No Fever, No Chills, No Neck Pain or Stiffness, No Chest Pain, No Palpitations, No SOB, No LOREDO, No Cough, No Sputum, No Wheezing, No Abdominal Pain, No Diarrhea, No Hematemesis, No Hemoptysis, No Unexpected Weight Loss, No Flank pain, No Melena, No Hematochezia, No Frequency, No Urgency, No Burning, No Hematuria, No Rashes, No Diaphoresis. Appetite is Normal Physical Exam Gen-AAO x 3, NAD, Afebrile Head-NCAT, EOMI, PERRLA, Anicteric Sclera, No Posterior Pharyngeal Erythema Neck-Supple, No JVD, No Thyromegaly, No Masses, No LAD, No Bruits Lungs-Clear to Auscultation Bilaterally, No Rales, No Rhonchi, No Wheezing, No Crepitus Chest-No S4, +S1, +S2, No S3, No Murmurs, No Rubs, No Gallops, No Ectopy Abdomen-Soft, Bowel Sounds Present, Non Tender, Non Distended, No Hepatomegaly, No Splenomegaly, No Palpable Masses, No Rebound, No Rigidity, No Guarding Musculoskeletal-Full Range of Motion Bilaterally, No CVAT Extremities-No Cyanosis, No Clubbing, No Edema Nuero-Cranial Nerves II-XII grossly intact, Motor WNL, DTRs WNL, Strength WNL, Non Focal Psych-Normal Mood Total Time Total Time Spent Total Time Spent (In Minutes): 45 mins Discharge Plan Discharge Items [facility] Disposition: [facility] Reason For Visit: SYNCOPE, ILLNESS Discharge Diagnosis: Acute Pyelonephritis/UTI E Coli Bacteria Leukocytosis Ureter Stone Condition on Discharge: Fair Activity: Resume your previous activity Lifting: Gradually increase as tolerated Bathing: No limitations Sexual Activity: When tolerated Exercise/Sports: Gradually increase as tolerated Driving/Machine Use: No limitations Weightbearing: Full weightbearing Non-emergency contact: Primary Care Provider and Urologist Call non-emergency contact if: you have any medication questions Follow-up/Referrals: Valdo King MD [Physician] - 01/06/22 8:40 am Narda Chopra DO [Primary Care Provider] - (Date & Time 01/02/2022 2:20 PM Provider Lizabeth Whiteside DO Department [facility] ) Diet: Regular 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 We are happy to assist you. While you have a ureteral stent in place: Some discomfort is normal. Certain movements may trigger pain or a feeling that you need to urinate. You may also feel mild soreness or pressure before or during urination. These symptoms should go away a few days after the stent is removed. Your urine may be slightly pink or red. This is due to bleeding caused by minor irritation from the stent. This may happen on and off while you have the stent, it is not harmful and is to be expected. Medication to help minimize discomfort or bladder spasms, or to prevent infection may be prescribed. Take this as directed. Drink plenty of fluids to help flush out your urinary tract. How long will you need a stent? An appointment should already be made for you. The stent is often taken out after the blockage in the ureter is treated or the ureter has healed. Prior to your followup appointment you will be asked to get a KUB x-ray, please complete this the night before or morning of your appointment. When to call [facility] Urology at [phone]: Your urine contains heavy blood clots You are constantly leaking urine Fever of 101F or higher, chills, nausea, or vomiting Your pain is not relieved with medication The end of the stent comes out of your urethra Pending Studies at Discharge: No Stand-Alone Forms: My [employer] Skilled Items Patient informed of condition?: Yes Discharge Level of Care: Other Communicable Disease: No Discharge Prognosis: Stable Urinary Catheter: No Medications and DC Order Prescriptions: New ciprofloxacin HCl 500 mg Tablet 500 mg PO BID Qty: 14 RF: 0 tamsulosin 0.4 mg Capsule 0.4 mg PO QAM Qty: 14 RF: 0 prochlorperazine maleate [Compazine] 10 mg tablet 10 mg PO Q8H PRN (Reason: nausea and vomiting) 2 Days Qty: 20 RF: 0 Continued Daily Multivitamin 200-100-500 mcg Capsule 1 cap PO DAILY RF: 0 ibuprofen [Advil] 200 mg Tablet 400 mg PO Q12 PRN (Reason: Pain) RF: 0 Excedrin Migraine 250-250-65 mg Tablet 2 tab PO BID PRN (Reason: Migraine Headache) RF: 0 Discharge Orders: Discharge Order (Routine); Ordered 12/26/21 Ordered By: Dung Arrington Admission Data Admit Date/Time: 12/23/21 21:28 Attending Provider: Dung Arrington Admit Provider: Oscar Arteaga Primary Care Provider: Narda Chopra Other Providers: Oscar Arteaga ; Tom Cooley
== END 2021-12-26 12:08 | DRG 854 ==
LOC: ED 17:37 → SUATTDRO 21:28 → 2S 21:28